=== PATIENT | female | born 1945 ===

== ENCOUNTER 2016-05-19 17:34 | Observation (INO) | payer OTHER ==
[2016-05-19 17:39] VITALS: BMI 28.3
--- NOTE | 2016-05-19 17:59 | ED PDOC ---
Arrival/HPI - General Chief Complaint: Chest Pain Time Seen by Provider: 05/19/16 17:36 Historian: Patient - History of Present Illness Narrative History of Present Illness (Text): 05/19/16 17:36 A 70 year old female, whose past medical history includes atrial fibrillation ( on Xarelto), CAD (on plavix), CHF, fibromyalgia, anxiety and leaky value, presents to the emergency department complaining of progressively worsening weakness for some time but worse two days ago. Patient notes 2 days ago she developed intermittent, achy chest pain located across the chest wall. She notes and increase in the frequency of shortness of breath. She mentions for the past week she has had a non productive cough. Patient denies any fever, or other complaints at this time. PMD: Dr. Ramos Time/Duration: Other (sometimes now but worsening over the past 2 days) Symptom Onset: Gradual Symptom Course: Worsening Quality: Aching Activities at Onset: Rest Context: Home Past Medical History - Provider Review Nursing Documentation Reviewed: Yes - Cardiac Hx Atrial Fibrillation: Yes Other/Comment: "leaky valve" - Musculoskeletal/Rheumatological Hx Osteoporosis: Yes - Psychiatric Hx Substance Use: No - Surgical History Hx Hysterectomy: Yes Family/Social History - Physician Review Nursing Documentation Reviewed: Yes Family/Social History: No Known Family HX Smoking Status: Unknown If Ever Smoked Hx Alcohol Use: No Hx Substance Use: No Allergies/Home Meds Allergies/Adverse Reactions: Allergies No Known Allergies Allergy (Verified 05/19/16 17:38) Home Medications: Home Meds Medication Instructions Recorded Confirmed Amiodarone [Cordarone] 200 mg PO DAILY 05/19/16 05/19/16 Aspirin [Rhea Aspirin] 81 mg PO DAILY 05/19/16 05/19/16 Clopidogrel [Plavix] 75 mg PO DAILY 05/19/16 05/19/16 Gabapentin [Neurontin] 800 mg PO TID 05/19/16 05/19/16 Metoprolol Tartrate [Lopressor] 50 mg PO BID 05/19/16 05/19/16 Pantoprazole [Protonix] 40 mg PO DAILY 05/19/16 05/19/16 Pentoxifylline [Pentoxifylline] 400 mg PO TID 05/19/16 05/19/16 Rivaroxaban [Xarelto] 20 mg PO DAILY 05/19/16 05/19/16 diltiaZEM CD [Cardizem CD] 180 mg PO DAILY 05/19/16 05/19/16 Review of Systems - Physician Review All systems were reviewed & negative as marked: Yes - Review of Systems Constitutional: Fatigue. absent: Fevers Respiratory: SOB, Cough. absent: Sputum Cardiovascular: Chest Pain Physical Exam Vital Signs Reviewed: Yes Pulse: Regular Respiratory Rate: Normal Appearance: Positive for: Non-Toxic Pain Distress: None Mental Status: Positive for: Alert and Oriented X 3 - Systems Exam Head: Present: Atraumatic, Normocephalic Pupils: Present: PERRL Extroacular Muscles: Present: EOMI Conjunctiva: Present: Normal Mouth: Present: Moist Mucous Membranes Neck: Present: Normal Range of Motion Respiratory/Chest: Present: Clear to Auscultation, Good Air Exchange. No: Respiratory Distress, Accessory Muscle Use Cardiovascular: Present: Regular Rate and Rhythm, Normal S1, S2. No: Murmurs Abdomen: Present: Normal Bowel Sounds. No: Tenderness, Distention, Peritoneal Signs Back: Present: Normal Inspection Upper Extremity: Present: Normal Inspection. No: Cyanosis, Edema Lower Extremity: Present: Edema (+1 edema bilaterally). No: CALF TENDERNESS Neurological: Present: GCS=15, CN II-XII Intact, Speech Normal Skin: Present: Warm, Dry, Normal Color. No: Rashes Psychiatric: Present: Alert, Oriented x 3, Normal Insight, Normal Concentration Medical Decision Making ED Course and Treatment: 05/19/16 17:36 Impression: A 70 year old female with worsening weakness, shortness of breath and chest pain. Differential Diagnosis included but are not limited to: ACS vs. CHF vs. Pneumonia Plan: -- EKG -- Chest X-ray -- Labs -- Urinalysis -- Aspirin -- Reassess and disposition Progress Notes: - Lab Interpretations Lab Results: 05/19/16 18:05 05/19/16 18:05 Lab Results 05/19/16 18:05: WBC 5.1, RBC 3.32 L, Hgb 9.2 L, Hct 28.1 L, MCV 84.6, MCH 27.7, MCHC 32.7, RDW 14.8 H, Plt Count 201, MPV 10.0, Gran % 57.7, Lymph % (Auto) 29.6 , Assumption % (Auto) 8.9 H, Eos % (Auto) 3.2, Baso % (Auto) 0.6, Gran # 2.92, Lymph # 1.5, Assumption # 0.5, Eos # 0.2, Baso # 0.03, PT 16.2 H, INR 1.50 H, APTT 28.6, Sodium 136, Potassium 4.5, Chloride 104, Carbon Dioxide 22, Anion Gap 15, BUN 26 H, Creatinine 1.2, Est GFR ( Amer) 53, Est GFR (Non-Af Amer) 44, Random Glucose 113 H, Calcium 8.5, Magnesium 2.0, Total Bilirubin 0.5, AST 242 H , ALT 299 H, Alkaline Phosphatase 192 H, Lactate Dehydrogenase 1528 H, Total Creatine Kinase 86, Troponin I 0.02, NT-Pro-B Natriuret Pep 2150 H, Total Protein 6.5, Albumin 3.5, Globulin 3.0, Albumin/Globulin Ratio 1.2 I have reviewed the lab results: Yes - RAD Interpretation Radiology Orders: 05/19/16 17:48 CHEST PORTABLE [RAD] Stat - Medication Orders Current Medication Orders: Discontinued Medications Aspirin (Ecotrin) 162 mg PO STAT STA Stop: 05/19/16 17:48 Last Admin: 05/19/16 18:25 Dose: 162 MG - Scribe Statement The provider has reviewed the documentation as recorded by the Gerson Hogan Provider Scribe Attestation: All medical record entries made by the Radhaibkike were at my direction and personally dictated by me. I have reviewed the chart and agree that the record accurately reflects my personal performance of the history, physical exam, medical decision making, and the department course for this patient. I have also personally directed, reviewed, and agree with the discharge instructions and disposition. Disposition/Present on Arrival - Present on Arrival Any Indicators Present on Arrival: No History of DVT/PE: No History of Uncontrolled Diabetes: No Urinary Catheter: No History of Decub. Ulcer: No History Surgical Site Infection Following: None - Disposition Have Diagnosis and Disposition been Completed?: Yes Diagnosis: Congestive heart failure, Chest pain Disposition Time: 18:45 Patient Plan: Observation, Telemetry Condition: FAIR Discharge Instructions (ExitCare): Heart Failure (ED), Chest Pain (ED)
[2016-05-19 18:14] LABS: ADD MANUAL DIFF? NO
[2016-05-19 18:18] LABS: BASO # 0.03 K/mm3 (0.0-2.0); BASO % 0.6 % (0.0-3.0); EOS # 0.2 (0.0-0.7); EOS % 3.2 % (1.5-5.0); GRAN # 2.92 (1.4-6.5); GRAN % 57.7 % (50.0-68.0); HEMATOCRIT 28.1 % (36.0-48.0); LYMPH # 1.5 (1.2-3.4); LYMPH % 29.6 % (22.0-35.0); MEAN CELL VOLUME 84.6 fL (80.0-105.0); MEAN CORPUSCULAR HEMOGLOBIN 27.7 pg (25.0-35.0); MEAN CORPUSCULAR HGB CONC 32.7 g/dl (31.0-37.0); MONO # 0.5 (0.1-0.6); MONO % 8.9 % (1.0-6.0); PLATELET COUNT 201 10^3/uL (120.0-450.0); RED CELL DISTRIBUTION WIDTH 14.8 % (11.5-14.5); WHITE BLOOD COUNT 5.1 10^3/ul (4.5-11.0)
[2016-05-19 18:32] LABS: ALB/GLOB RATIO 1.2 (1.1-1.8); BILIRUBIN,TOTAL 0.5 mg/dL (0.2-1.3); CALCIUM 8.5 mg/dL (8.4-10.5); POTASSIUM 4.5 mmol/L (3.6-5.0); TOTAL PROTEIN 6.5 g/dL (5.8-8.3)
[2016-05-19 18:35] LABS: INR 1.5 (0.93-1.08); PARTIAL THROMBOPLASTIN TIME 28.6 Seconds (23.7-30.8)
[2016-05-19 18:42] LABS: TROPONIN I 0.02 ng/mL
[2016-05-19 23:50] LABS: URINE BILIRUBIN NEGATIVE (NEGATIVE); URINE BLOOD NEGATIVE (NEGATIVE); URINE GLUCOSE (UA) NEGATIVE (NEGATIVE); URINE KETONE NEGATIVE (NEGATIVE); URINE LEUKOCYTE ESTERASE NEGATIVE Leu/uL (NEGATIVE); URINE PROTEIN TRACE mg/dL (<30 mg/dL); URINE UROBILINOGEN 0.2 E.U./dL (<1 E.U./dL)
[2016-05-19 23:51] LABS: URINE APPEARANCE CLEAR (CLEAR); URINE COLOR YELLOW (YELLOW)
[2016-05-19] MEDS ORDERED: Pantoprazole 40 mg EC Tab PO STA (23:51)
[2016-05-19 23:54] LABS: URINE EPITHELIAL CELLS 0 - 2 /hpf (0-5); URINE RBC 0 - 2 /hpf (0-2); URINE WBC 0 - 2 /hpf (0-6)
[2016-05-19 23:58] VITALS: O2SAT 98
[2016-05-20 04:17] LABS: ADD MANUAL DIFF? NO
[2016-05-20 04:20] LABS: BASO # 0.02 K/mm3 (0.0-2.0); BASO % 0.4 % (0.0-3.0); EOS # 0.2 (0.0-0.7); EOS % 3.2 % (1.5-5.0); GRAN # 2.64 (1.4-6.5); GRAN % 53.1 % (50.0-68.0); HEMATOCRIT 26.9 % (36.0-48.0); LYMPH # 1.6 (1.2-3.4); LYMPH % 31.5 % (22.0-35.0); MEAN CELL VOLUME 84.6 fL (80.0-105.0); MEAN CORPUSCULAR HEMOGLOBIN 27.7 pg (25.0-35.0); MEAN CORPUSCULAR HGB CONC 32.7 g/dl (31.0-37.0); MEAN PLATELET VOLUME 9.9 fl (7.0-11.0); MONO # 0.6 (0.1-0.6); MONO % 11.8 % (1.0-6.0); PLATELET COUNT 180 10^3/uL (120.0-450.0); RED CELL DISTRIBUTION WIDTH 14.6 % (11.5-14.5)
[2016-05-20 04:48] LABS: ALB/GLOB RATIO 1.1 (1.1-1.8); BILIRUBIN,TOTAL 0.5 mg/dL (0.2-1.3); CALCIUM 8.3 mg/dL (8.4-10.5); PHOSPHOROUS 4.4 mg/dL (2.5-4.5); POTASSIUM 4.3 mmol/L (3.6-5.0); TOTAL PROTEIN 5.9 g/dL (5.8-8.3)
[2016-05-20 05:02] LABS: FREE T4 1.57 ng/dL (0.78-2.19)
[2016-05-20 05:16] LABS: THYROID STIMULATING HORMONE 3.74 mIU/mL (0.46-4.68)
[2016-05-20] MEDS ORDERED: Pantoprazole 40 mg EC Tab PO SCH (06:30)
--- NOTE | 2016-05-20 06:31 | HP ---
HISTORY OF PRESENT ILLNESS: The patient is a 70-year-old female who came to Emergency Room complaining of increasing shortness of breath, feeling weak, tired, having some chest pressure. Has been going on for the last 2 to 3 days. It got worse today. She complained of chest discomfort acro ss the chest wall along with shortness of breath. Denies any fever or chills. She did have a produc tive cough almost a week or 2 ago, but did not have fever. No hemoptysis, no hematemesis. PAST MEDICAL HISTORY: Significant for: 1. Chronic AFib, on Xarelto. 2. Coronary artery disease. 3. History of congestive heart failure. 4. Anxiety disorder. 5. History of fibromyalgia. ALLERGIES: She is not allergic to any medications. MEDICATIONS AT HOME: She is on: 1. Pentoxifylline. 2. Neurontin 800 three times a day. 3. Xarelto 20 mg daily. 4. Plavix 75 mg daily. 5. Metoprolol 50 mg twice a day. 6. Diltiazem 180 daily. 7. Protonix 40 daily. 8. Aspirin 81 daily. 9. Amiodarone 200 daily. SOCIAL HISTORY: Denies smoking, drinking or alcohol use. REVIEW OF SYSTEMS: Significant for generalized weakness, shortness of breath, chest tightness off an d on, cough and congestion. PHYSICAL EXAMINATION: GENERAL: She is awake and alert, communicative. VITAL SIGNS: She is afebrile, pulse 52, respirations 20, blood pressure 120/63. LUNGS: Bilateral basal soft crackle. HEART: S1, S2 audible. ABDOMEN: Soft, nontender. No rebound, no guarding. NEUROLOGIC: The patient is awake and alert, communicative. LABORATORY DATA: WBC is 5.1, hemoglobin 9.2, hematocrit 28, platelet 201. PT 16.2, INR 1.50, PTT 28 .6. Chemistry: Sodium 136, potassium 4.5, chloride 104, CO2 of 22, BUN 26, creatinine 1.2, blood ramirez gar of 113. AST 242, ALT 299, alkaline phosphatase 192. LDH is 1528. BNP is 2150. X-ray chest shows venous congestion. ASSESSMENT: 1. Chest pain, rule out coronary artery disease. 2. Congestive heart failure. 3. History of chronic atrial fibrillation with acute and chronic atrial fibrillation. 4. Abnormal liver function tests, probably passive congestion, rule out cholelithiasis. 5. Abnormal liver function tests. 6. Mild renal insufficiency. 7. Chronic anemia. PLAN: The patient will be admitted on telemetry. Will start diuresis. Will resume her medication. Cardiology consult by Dr. Euceda. Echocardiogram will be ordered and I will also order for abdominal sonogram. Will reevaluate the patient in the a.m. Claire Henderson MD cc: [phone] TT: 05/20/2016 06:31:02 mn
--- NOTE | 2016-05-20 07:55 | RAD ---
HISTORY: chest pain, cough r/o pna COMPARISON: No prior. FINDINGS: LUNGS: The lungs are well inflated. There is bibasilar airspace disease. PLEURA: No significant pleural effusion identified, no pneumothorax apparent. CARDIOVASCULAR: Normal. OSSEOUS STRUCTURES: No significant abnormalities. VISUALIZED UPPER ABDOMEN: Normal. OTHER FINDINGS: None. IMPRESSION: Bibasilar airspace disease may represent subsegmental atelectasis however superimposed pneumonia cannot be excluded. Follow-up PA and lateral radiographs are recommended to ensure complete resolution.
[2016-05-20] MEDS ORDERED: diltiaZEM 180 mg/24 Hours CD Cap PO SCH (10:00)
--- NOTE | 2016-05-20 12:06 | CARD ---
APPROVED REPORT EKG Measurement Heart [id number] <Conclusion> Sinus bradycardia Otherwise normal ECG
--- NOTE | 2016-05-20 12:08 | CON ---
DATE: 05/20/2016 REASON FOR CONSULTATION: Shortness of breath, cardiac evaluation, history of atrial fibrillation, hi story of mitral regurgitation. BRIEF CLINICAL HISTORY: A 70-year-old Belarusian speaking female came to the Emergency Room. Recently came from [place]. Information obtained from the daughter, Rossi, telephone #[phone]. Expl ained the patient has atrial fibrillation, coronary artery disease and possible mitral regurgitation. Being followed by Dr. Garcia, and is scheduled for cardiac catheterization at [place] and open hea rt at [facility]. Yesterday, patient was at home. The patient's son-in-law called the daughter venkat gibbs she was feeling very weak, so brought to the Emergency Room. Denies any chest pain now, but yeste rday she had chest pain and shortness of breath as well. PAST MEDICAL HISTORY: As mentioned, significant for atrial fibrillation, coronary artery disease, mi tral regurgitation, congestive heart failure, and fibromyalgia. PAST SURGICAL HISTORY: Not obtainable. CURRENT MEDICATIONS: Pentoxifylline, Neurontin, Xarelto, Plavix, metoprolol, Cardizem, Protonix, asp irin, amiodarone. SOCIAL HISTORY: Denies smoking. Denies any history of alcohol abuse. REVIEW OF SYSTEMS: As per HPI. PHYSICAL EXAMINATION: VITAL SIGNS: Temperature afebrile, heart rate 52, blood pressure 125/68. HEENT: PERRLA. Extraocular muscles intact. NECK: Supple. No carotid bruit or thyromegaly. CHEST: Clear to auscultation. HEART: S1, S2 regular. ABDOMEN: Soft. EXTREMITIES: Clubbing and cyanosis negative. LABORATORY DATA: Blood workup as follows: WBC 5.0, hemoglobin 8.8, hematocrit 26.9, platelet count 180. Chemistry shows sodium 138, potassium 4.3, chloride 106, carbon dioxide 24, anion gap of 12, BU N 22, creatinine 1.2. Troponin 0.02. TSH 3.74. Triglyceride 90, cholesterol 160, LDL 66, HDL 34. BNP 2150. EKG shows possible sinus itzel. IMPRESSION: Paroxysmal atrial fibrillation, anemia, decompensated congestive heart failure, severe m itral regurgitation, coronary artery disease, congestive heart failure possibly secondary to hy pertension, coronary artery disease. RECOMMENDATION: The patient has already been scheduled for cardiac catheterization and possible MVR at [facility]. Discussed with the daughter, Rossi, telephone number [phone]. Agree to continue Xarelto, but patient is on heavy duty blood thinner. Also history of tinnitus for a long time. Con tinue IV Lasix. Discussed with the patient. Since all the records and everything is there and the p atient has already been scheduled, suggest to follow up with [facility] for open heart surgery. We will discuss with Dr. Henderson. Once the patient is stable, can be discharged and to fo llow up with them. No further cardiac workup is planned at this time, except patient has already bee n ordered an echo. We will follow and review the echo when it is done. Interim, continue amiodarone to maintain sinus. Continue IV Lasix. Continue Cardizem. Will follow with you. Thank you, Dr. Henderson, for providing the opportunity in taking care of the patient. Will Euceda MD cc: [phone] TT: 05/20/2016 12:07:59 Confirmation # [id number] Dictation # [id number] vanessa
--- NOTE | 2016-05-20 13:17 | CARD ---
APPROVED REPORT EXAM: Two-dimensional and M-mode echocardiogram with Doppler and color Doppler. INDICATION Chest Pain Congestive Heart Failure 2D DIMENSIONS Left Atrium (2D)4.8 (1.6-4.0cm)IVSd1.2 (0.7-1.1cm) LVDd5.5 (3.9-5.9cm)PWd1.1 (0.7-1.1cm) LVDs3.7 (2.5-4.0cm)FS (%) 33.4 % LVEF (%)61.5 (>50%) M-Mode DIMENSIONS Aortic Root2.40 (2.2-3.7cm)Aortic Cusp Exc.1.30 (1.5-2.0cm) Aortic Valve AoV Peak Vrgokboi562.0cm/Jarrell Peak GR.16mmHg Mitral Valve E/A ratio0.0 TDI E/Lateral E'0.0E/Medial E'0.0 Tricuspid Valve TR Peak [id number]/sRAP [id number] Peak Gr.58mmHg [id number] LEFT VENTRICLE The left ventricle is normal size. There is mild concentric left ventricular hypertrophy. The left ventricular function is normal.EF-55-60% There is normal LV segmental wall motion. Transmitral Doppler flow pattern is Grade III-reversible restrictive diastolic dysfunction. No left ventricle thrombus noted on this study. There is no ventricular septal defect visualized. There is no left ventricular aneurysm. RIGHT VENTRICLE The right ventricle is normal size. There is normal right ventricular wall thickness. The right ventricular systolic function is normal. ATRIA The left atrium is mildly dilated. The right atrium is mildly dilated. The interatrial septum is intact with no evidence for an atrial septal defect. AORTIC VALVE The aortic valve is calcified but opens well. The aortic valve is moderately sclerotic. There is trace aortic regurgitation. Aortic sclerosis Vs Mild MITRAL VALVE The mitral valve is thickened but opens well. Mitral regurgitation is severe. There is no mitral valve stenosis. There is no evidence of mitral valve prolapse. TRICUSPID VALVE The tricuspid valve leaflets are thickened , but open well. There is moderate to severe tricuspid regurgitation.[id number] There is moderate pulmonary hypertension. There is no tricuspid valve stenosis. There is no tricuspid valve prolapse or vegetation. PULMONIC VALVE The pulmonic valve is mildly thickened. There is trace pulmonic valvular regurgitation. There is no pulmonic valvular stenosis. GREAT VESSELS The aortic root is normal in size. The ascending aorta is normal in size. The pulmonary artery is normal. The IVC is normal in size and collapses >50% with inspiration. PERICARDIAL EFFUSION There is no pericardial effusion. <Conclusion> The left ventricle is normal size. There is mild concentric left ventricular hypertrophy. The left ventricular function is normal.EF-55-60% There is trace aortic regurgitation. Aortic sclerosis Vs Mild Mitral regurgitation is severe. There is moderate to severe tricuspid regurgitation.[id number] There is moderate pulmonary hypertension. There is no pericardial effusion. The IVC is normal in size and collapses >50% with inspiration. No vegetation or thrombus noted.
[2016-05-20 17:55] VITALS: BP 124/64; PULSE 53; RESP 19; TEMP 98.9
--- NOTE | 2016-05-21 10:27 | DS ---
The patient was not able to give much history yesterday, but today, I got more detailed history from her daughter. She stated the patient moved here almost a month ago, and she was having complaint of palpitation and shortness of breath. She has been going to different hospital, including ____ [facility]. The daughter knows somebody in [facility], and she made an appointment with mannequin refinisher mukesh Cavanaugh, and she is scheduled to have a valve repair done on . Initial plan was to have cardiac cath done. She has surgery scheduled already for . So they opted to transfer her t o [facility] to have her procedure done - both cardiac cath and possible valve repair. PHYSICAL EXAMINATION: GENERAL: Today, she is awake and alert. She is communicative. She is not complaining of shortness of breath or palpitations at this point. VITAL SIGNS: She is afebrile, pulse 53, respirations 19, blood pressure 124/64. LUNGS: Bilateral fair airflow. No rhonchi or crackle. HEART: S1, S2 audible with a systolic murmur. ABDOMEN: Soft, nontender. No rebound, no guarding. NEUROLOGIC: She is awake and alert, communicative. LABORATORY EXAM: WBC is 5.0, hemoglobin 8.8, hematocrit 26.9, platelets 180. Chemistry: Sodium 138 , potassium 4.3, chloride 106, CO2 of 24, BUN 22, creatinine 1.2, blood sugar of 95. Her AST 179, AL T 242. Alk phos is 165. BNP on admission was 2150. Two sets of troponins are negative. She had echocardiogram done that showed concentric LVH. Left ventricular ejection fraction is 55-60% , trace aortic regurg, and she has aortic sclerosis and severe mitral regurg, moderate to severe tric uspid regurg, moderate pulmonary hypertension. ASSESSMENT: 1. Exertional dyspnea, probably secondary to severe mitral regurgitation. 2. Chronic atrial fibrillation. 3. Hypertension. 4. Chronic anemia. 5. Passive hepatic congestion with ____. Conclusion was to transfer the patient to [facility], and that was done, where she will have mitral valve repair done and possible cardiac catheterization done . She will follow up with her primary medical doctor, Dr. Ramos. Claire Henderson MD cc: [phone] TT: 05/21/2016 10:26:57 jn
== END 2016-05-20 21:13 | disposition short-term general hospital (02) ==
LOC: ED 17:34 → ERH 18:40 → 2RNO 22:54
PROVIDERS: ADMIT Internal Medicine; ATTEND Internal Medicine
DX: I34.0 Nonrheumatic mitral (valve) insufficiency (principal); I11.0 Hypertensive heart disease with heart failure; I50.9 Heart failure, unspecified; I48.2 Chronic atrial fibrillation; I27.2 Other secondary pulmonary hypertension; D64.9 Anemia, unspecified; K76.1 Chronic passive congestion of liver; I25.10 Atherosclerotic heart disease of native coronary artery without angina pectoris; F41.9 Anxiety disorder, unspecified; M79.7 Fibromyalgia; N28.9 Disorder of kidney and ureter, unspecified; Z79.82 Long term (current) use of aspirin; R06.09 Other forms of dyspnea; Z79.01 Long term (current) use of anticoagulants
CPT/HCPCS: 36415; 71010; 80053; 80061; 81001; 82550; 83036; 83615; 83735; 83880; 84100; 84439; 84443; 84484; 85025; 85610; 85730; 87086; 93005; 93306; 97116; 97162; 99284; G0378; G8978; G8979; J1940; J2405

== ENCOUNTER 2018-04-02 09:44 | Inpatient (IN) | payer OTHER ==
[2018-04-02 09:46] VITALS: BMI 27.8
--- NOTE | 2018-04-02 10:02 | ED PDOC ---
Arrival/HPI - General Time Seen by Provider: 04/02/18 09:46 Historian: Patient - History of Present Illness Narrative History of Present Illness (Text): 04/02/18 09:59 a 72 year old female, whose past medical history includes atrial fibrillation, CAD, CHF, fibromyalgia, anxiety, mitral and tricuspid valve replacement, presents to the emergency department with a complaint of headache, right earache, cough, chest pain, and shortness of breath. The patient states that she is visiting from [place] for the past month. She reports chills but denies fevers, dizziness , dyspnea on exertion, sputum, abdominal pain, nausea, vomiting, diarrhea, back pain, neck pain, urinary/bowel changes, or any other complaint. Time/Duration: Other (Yesterday) Symptom Onset: Sudden Symptom Course: Unchanged Activities at Onset: Rest, Light Context: Home Past Medical History - Provider Review Nursing Documentation Reviewed: Yes - Cardiac Hx Congestive Heart Failure: Yes Hx Hypertension: Yes - Pulmonary Hx Respiratory Disorders: No - Neurological Hx Neurological Disorder: No - HEENT Hx HEENT Disorder: No - Renal Hx Renal Disorder: No - Endocrine/Metabolic Hx Endocrine Disorders: No - Integumentary Hx Dermatological Disorder: No - Musculoskeletal/Rheumatological Hx Falls: Yes - Gastrointestinal Hx Gastrointestinal Disorders: Yes Hx Gastroesophageal Reflux: Yes - Genitourinary/Gynecological Hx Genitourinary Disorders: No - Psychiatric Hx Anxiety: Yes Hx Substance Use: No - Surgical History Hx Hysterectomy: Yes Family/Social History - Physician Review Nursing Documentation Reviewed: Yes Family/Social History: No Known Family HX Smoking Status: Never Smoked Hx Alcohol Use: No Hx Substance Use: No Allergies/Home Meds Allergies/Adverse Reactions: Allergies No Known Allergies Allergy (Verified 04/02/18 10:00) Home Medications: Home Meds Medication Instructions Recorded Confirmed Aspirin [[place] Aspirin] 81 mg PO DAILY 05/19/16 04/02/18 Gabapentin [Neurontin] 800 mg PO TID 05/19/16 04/02/18 Metoprolol Tartrate [Lopressor] 50 mg PO BID 05/19/16 04/02/18 Atorvastatin [Lipitor] 20 mg PO DAILY 04/02/18 04/02/18 Furosemide [Lasix] 20 mg PO DAILY 04/02/18 04/02/18 Orphenadrine [Norflex] 100 mg PO DAILY 04/02/18 04/02/18 Review of Systems - Physician Review All systems were reviewed & negative as marked: Yes - Review of Systems Constitutional: absent: Fevers ENT: Other (Right earache) Respiratory: SOB, Cough. absent: Sputum Cardiovascular: Chest Pain. absent: MUNROE Gastrointestinal: absent: Abdominal Pain, Stool Changes, Diarrhea, Nausea, Vomiting Genitourinary Female: absent: Urine Output Changes Neurological: absent: Headache, Dizziness Physical Exam Vital Signs Reviewed: Yes Vital Signs Temp Pulse Resp BP Pulse Ox 04/02/18 09:45 98.1 F 83 18 123/51 L 98 Temperature: Afebrile Blood Pressure: Hypotensive Pulse: Regular Respiratory Rate: Normal Appearance: Positive for: Well-Appearing, Non-Toxic, Comfortable Pain Distress: None Mental Status: Positive for: Alert and Oriented X 3 - Systems Exam Head: Present: Atraumatic, Normocephalic Pupils: Present: PERRL Extroacular Muscles: Present: EOMI Conjunctiva: Present: Normal Mouth: Present: Moist Mucous Membranes Neck: Present: Normal Range of Motion Respiratory/Chest: Present: Good Air Exchange, Decreased Breath Sounds. No: Respiratory Distress, Accessory Muscle Use Cardiovascular: Present: Regular Rate and Rhythm, Normal S1, S2. No: Murmurs Abdomen: No: Tenderness, Distention, Peritoneal Signs Back: Present: Normal Inspection Upper Extremity: Present: Normal Inspection. No: Cyanosis, Edema Lower Extremity: Present: Normal Inspection. No: Edema Neurological: Present: GCS=15, CN II-XII Intact, Speech Normal Skin: Present: Warm, Dry, Normal Color. No: Rashes Psychiatric: Present: Alert, Oriented x 3, Normal Insight, Normal Concentration Medical Decision Making ED Course and Treatment: 04/02/18 10:03 Impression: A 72 year old female presents to the emergency department with a complaint of headache, right earache, cough, chest pain, and shortness of breath. Plan: -- EKG -- Chest X-ray -- Blood Culture -- Labs -- Reassess and disposition Progress Notes: Chest X-ray Dictator : Jesse Gomez MD Report Date : 04/02/2018 10:35:05 IMPRESSION: No active disease. 04/02/18 11:04: Discussed case with Dr. Prescott who accepts patient to her service for Tele admission. Requested Dr. Avila and Dr. Harris for admission. 04/02/18 11:32 EKG shows normal sinus rhythm rate approximately [address] or T-wave changes. - Lab Interpretations I have reviewed the lab results: Yes - EKG Interpretation Interpreted by ED Physician: Yes Type: 12 lead EKG - Scribe Statement The provider has reviewed the documentation as recorded by the Scribe Luz Ortiz Provider Scribe Attestation: All medical record entries made by the Scribe were at my direction and per sonally dictated by me. I have reviewed the chart and agree that the record accurately reflects my personal performance of the history, physical exam, medical decision making, and the department course for this patient. I have also personally directed, reviewed, and agree with the discharge instructions and disposition. Disposition/Present on Arrival - Present on Arrival Any Indicators Present on Arrival: No History of DVT/PE: No History of Uncontrolled Diabetes: No Urinary Catheter: No History of Decub. Ulcer: No History Surgical Site Infection Following: None - Disposition Have Diagnosis and Disposition been Completed?: Yes Diagnosis: Congestive heart failure, Influenza Disposition: HOSPITALIZED Disposition Time: 11:13 Patient Plan: Observation, Telemetry Patient Problems: Current Active Problems Problem Status Onset Congestive heart failure Acute Influenza Acute Condition: FAIR
[2018-04-02 10:32] LABS: BASO # 0.02 K/mm3 (0.0-2.0); BASO % 0.3 % (0.0-3.0); EOS % 0.2 % (1.5-5.0); HEMOGLOBIN 10.4 g/dL (12.0-16.0); LYMPH # 0.6 (1.2-3.4); MEAN CELL VOLUME 83.5 fl (80.0-105.0); MEAN CORPUSCULAR HEMOGLOBIN 26.9 pg (25.0-35.0); MEAN CORPUSCULAR HGB CONC 32.2 g/dl (31.0-37.0); MEAN PLATELET VOLUME 9.6 fl (7.0-11.0); MONO # 0.5 (0.1-0.6); MONO % 8.4 % (1.0-6.0); RBC 3.87 10^6/uL (3.5-6.1); RED CELL DISTRIBUTION WIDTH 14.5 % (11.5-14.5); WHITE BLOOD COUNT 6.3 10^3/uL (4.5-11.0)
--- NOTE | 2018-04-02 10:38 | RAD ---
Date of service: 04/02/2018 HISTORY: cp COMPARISON: 05/19/2016 FINDINGS: LUNGS: No active pulmonary disease. PLEURA: No significant pleural effusion identified, no pneumothorax apparent. CARDIOVASCULAR: Aortic calcification Normal cardiac size. No pulmonary vascular congestion. OSSEOUS STRUCTURES: Sternal wires VISUALIZED UPPER ABDOMEN: Normal. OTHER FINDINGS: None. IMPRESSION: No active disease.
[2018-04-02 10:43] LABS: ALB/GLOB RATIO 1.4 (1.1-1.8); ALBUMIN 4.3 g/dL (3.0-4.8); CALCIUM 9.1 mg/dL (8.4-10.5); INR 1.2; PARTIAL THROMBOPLASTIN TIME 28.6 Seconds (26.9-38.3); PROTHROMBIN TIME 13.6 SECONDS (9.4-12.5)
[2018-04-02 10:54] LABS: TROPONIN I 0.03 ng/mL
[2018-04-02 10:58] LABS: CK-MB 0.7 ng/mL (0.0-3.6)
[2018-04-02 11:09] LABS: INFLUENZA A B POS FOR INFLUENZA A (NEGATIVE)
[2018-04-02] MEDS ORDERED: Pantoprazole 20 mg EC Tab PO ONE (14:21)
[2018-04-02] MEDS: Enoxaparin 40 mg Syringe SC SCH (14:56)
[2018-04-02] MEDS: Naproxen 550 mg Tab PO SCH (17:59)
--- NOTE | 2018-04-02 18:23 | CON ---
DATE: 04/02/2018 PULMONARY CONSULT REFERRING PHYSICIAN: Tammie Prescott MD REASON FOR CONSULT: Cough, short of breath, influenza positive. HISTORY OF PRESENT ILLNESS: This is 72 years old female with known history of atrial fibrillation, coronary artery disease, history of heart failure, fibromyalgia, history of valvular heart disease, and valve replacement in the remote past. Recently traveled to [place], came back about 6 weeks or so, been doing okay. In [place], she was seen by physician and was given inhaled bronchodilator with some shortness of breath. According to her, she has been getting short of breath for a while now, but from the last 3 days has been having rhinitis, cough, body aches, pain, comes to ER, had a influenza test done according to ER which was positive. She was given Tamiflu. Presently complaining of aches and pains, cough. No nausea. No vomiting. No abdominal pain. No dysuria, leg pain or leg swelling. PAST MEDICAL HISTORY: As per history of present illness. FAMILY HISTORY: No significant cardiopulmonary disease reported. SOCIAL HISTORY: No history of smoking or alcohol use. ALLERGIES: NONE KNOWN. MEDICATIONS: As outpatient, she is on aspirin, gabapentin, metoprolol tartrate, Lipitor, Lasix, and Norflex. She was given Tamiflu in the ER. REVIEW OF SYSTEMS: Had headache, rhinitis, cough, shortness of breath. No chest pain. No nausea, no vomiting, no diarrhea. Has body aches and pains. PHYSICAL EXAMINATION GENERAL: Lying in the bed. VITAL SIGNS: Temperature is 99, heart rate 75, respiratory rate is 18, blood pressure 113/80, pulse ox 97% on room air. HEENT: Moist mucous membranes. Crowded airway. NECK: Supple. No JVD. LUNGS: Has scattered rhonchi. HEART: S1 and S2. ABDOMEN: Soft, nontender. No organomegaly. EXTREMITIES: No edema. NEUROLOGIC: Awake, alert; follows simple commands. LABORATORY DATA: Shows hemoglobin 10.4, hematocrit 33.3, WBC is 6.3, platelet is 168. INR 1.20. PTT 29. D-dimer is 287. Sodium 132, potassium 3.8, chloride 98, bicarbonate 23, BUN 21, creatinine 1.1, calcium is 9.1, magnesium 1.6, AST 30, ALT 12, alk phos is 66. Troponin 0.03, proBNP 5330, albumin is 4.3. Influenza A is positive. Group A beta strep is negative. Chest x-ray done shows no active pulmonary disease. IMPRESSION AND PLAN: Influenza A infection, probably triggering bronchitis and also probably triggering heart failure, history of fibromyalgia, history of valvular heart disease, diagnosis of atrial fibrillation. Pulmonary point of view, we will add inhaled bronchodilator, gastric prophylaxis, deep venous thrombosis prophylaxis, Tamiflu 75 mg daily. We will get venous Doppler of lower extremity. Recently traveled about 4-6 weeks ago. Also, we will get echocardiogram and assess right ventricular and left ventricular function. Has history of valvular heart disease with coronary artery disease and atrial fibrillation. Present EKG shows sinus rhythm. She is not on any anticoagulation. We will give DVT prophylaxis for now. We will also add Naprosyn for antiinflammatory. Continue her gabapentin for fibromyalgia. We will do followup labs in the morning. She may need outpatient sleep study because of her cardiomyopathy and AFib and crowded airway. Thank you and we will follow with you. Will Harris MD
--- NOTE | 2018-04-02 23:08 | CARD ---
APPROVED REPORT Date of service: 04/02/2018 EKG Measurement Heart [id number] <Conclusion> Normal sinus rhythm Normal ECG
[2018-04-02] MEDS: Budesonide 0.25 mg/2 ml Inhal Susp UD IH SCH (23:52)
[2018-04-02] MEDS: Arformoterol 15 mcg/2 ml Inh Sol IH SCH (23:52)
[2018-04-03 03:02] LABS: PH,URINE 5.5 (4.7-8.0); URINE BILIRUBIN NEGATIVE (NEGATIVE); URINE BLOOD NEGATIVE (NEGATIVE); URINE GLUCOSE (UA) NEGATIVE (NEGATIVE); URINE LEUKOCYTE ESTERASE SMALL Leu/uL (NEGATIVE); URINE PROTEIN NEGATIVE mg/dL (<30 mg/dL); URINE UROBILINOGEN 0.2 E.U./dL (<1 E.U./dL)
[2018-04-03 03:06] LABS: URINE APPEARANCE CLEAR (CLEAR); URINE COLOR YELLOW (YELLOW)
[2018-04-03 03:42] LABS: URINE BACTERIA SMALL /hpf
--- NOTE | 2018-04-03 03:58 | HP ---
DATE OF EXAM: 04/03/2018 HISTORY OF PRESENT ILLNESS: The patient is a 72-year-old female with past medical history of coronary artery disease, congestive heart failure, fibromyalgia, anxiety, mitral and tricuspid valve replacement, came to emergency department with complaining of headache, right earache, cough, chest pain, shortness of breath. The patient states that she is visiting from [place] for the past month. She reports chills, but denies fevers, dizziness, dyspnea on exertion, sputum, abdominal pain. No nausea, vomiting, or diarrhea. No urinary symptoms. PAST MEDICAL HISTORY: Congestive heart failure, hypertension, disease, and anxiety. FAMILY HISTORY: Father and mother, noncontributory. HABITS: No smoking. No drugs. No ethanol. ALLERGIES: THE PATIENT IS NOT ALLERGIC WITH ANY MEDICATIONS. HOME MEDICATIONS: Aspirin, Neurontin, Lopressor, Lipitor, Lasix, Norflex. REVIEW OF SYSTEMS: The patient was seen and examined at bedside in the ER looking comfortable. At that moment, no fever, no chills, no hematochezia. Complaining of shortness of breath, coughing, chest pain. No headache or dizziness. No urinary output changes. No abdominal pain, stool changes, diarrhea, nausea, or vomiting. PHYSICAL EXAMINATION: VITAL SIGNS: Temperature 98.1, pulse 86, respiratory rate 18, blood pressure 123/51, and pulse oximetry 98. HEENT: Head is normocephalic and atraumatic. Eyes; PERRLA. Extraocular muscles are intact. Conjunctivae clear. Nose patent. NECK: Supple. No carotid bruit. No JVD or thyromegaly. CHEST: Bilaterally symmetrical. HEART: S1 and S2 positive. LUNGS: Clear to auscultation. ABDOMEN: Soft. Bowel sounds present. No organomegaly. EXTREMITIES: No edema. No cyanosis. NEUROLOGIC: Awake and alert, follows simple commands. LABORATORY DATA: White blood cells 6.3, hemoglobin 10.4, hematocrit 32.3, platelets 158. Sodium 132, potassium 3.8, BUN 21, creatinine 1.1, glucose 129 and magnesium 1.6. ASSESSMENT AND PLAN: Ms. Herrera Martinez is a 72-year-old lady with hyperglycemia last night with hypomagnesemia, anemia, influenza positive for type A. Lower extremity ultrasound is pending. Has history of atrial fibrillation, coronary artery disease, congestive heart failure, history of fibromyalgia, valvular heart disease, valve replacement, particularly she was seen by the physician and was continued on inhaled bronchodilator with some shortness of breath, has influenza, multiple bronchitis, congestive heart failure, history of fibromyalgia, history of valvular heart disease. started on Tamiflu. Appreciated Dr. Harris's and Dr. Avila's input. Repeat labs. We will followup. Tammie Prescott MD MTDJuan Manuel
[2018-04-03] MEDS: Arformoterol 15 mcg/2 ml Inh Sol IH SCH ×2 (07:52→20:12)
[2018-04-03] MEDS: Budesonide 0.25 mg/2 ml Inhal Susp UD IH SCH ×2 (07:52→20:12)
[2018-04-03 08:14] LABS: HEMOGLOBIN 11.5 g/dL (12.0-16.0); MEAN CELL VOLUME 84.5 fl (80.0-105.0); MEAN CORPUSCULAR HEMOGLOBIN 26.7 pg (25.0-35.0); MEAN CORPUSCULAR HGB CONC 31.6 g/dl (31.0-37.0); MEAN PLATELET VOLUME 9.4 fl (7.0-11.0); RBC 4.31 10^6/uL (3.5-6.1); RED CELL DISTRIBUTION WIDTH 14.7 % (11.5-14.5)
[2018-04-03 08:32] LABS: IRON 20 ug/dL (45-180)
--- NOTE | 2018-04-03 08:35 | CP.PCM.CON ---
History of Present Illness - History of Present Illness History of Present Illness: Awake, ambulating to bathroom, no distress, Reason for consultation: Cardiac evaluation of chest pain and shortness of breath Brief history of present illness: A 72 year old female who came in to the ER due to headache, coughing, chest discomfort when coughing, body malaise, shortness of breath. History of coronary artery disease ,atrial fibrillation, CHF, fibromyalgia, tinnitus, anxiety, mitral and tricuspid valve replacement in [facility] 2017. Seen and examined by me and Dr. Avila Review of Systems - Review of Systems All systems: reviewed and no additional remarkable complaints except Review of Systems: as per HPI Past Patient History - Past Social History Smoking Status: Never Smoked - CARDIAC Hx Congestive Heart Failure: Yes - PULMONARY Hx Respiratory Disorders: No - NEUROLOGICAL Hx Neurological Disorder: No - HEENT Hx HEENT Problems: No - RENAL Hx Chronic Kidney Disease: No - ENDOCRINE/METABOLIC Hx Endocrine Disorders: No - INTEGUMENTARY Hx Dermatological Problems: No - MUSCULOSKELETAL/RHEUMATOLOGICAL Hx Falls: No - GASTROINTESTINAL Hx Gastrointestinal Disorders: Yes Hx Gastroesophageal Reflux: Yes - GENITOURINARY/GYNECOLOGICAL Hx Genitourinary Disorders: No - PSYCHIATRIC Hx Anxiety: Yes Hx Substance Use: No - SURGICAL HISTORY Hx Hysterectomy: Yes - ANESTHESIA Hx Anesthesia: Yes Hx Anesthesia Reactions: No Hx Malignant Hyperthermia: No Meds Allergies/Adverse Reactions: Allergies Allergy/AdvReac Type Severity Reaction Status Date / Time No Known Allergies Allergy Verified 04/02/18 10:00 - Medications Medications: Current Medications Acetaminophen (Tylenol 325mg Tab) 650 mg PO Q6H PRN PRN Reason: Fever >100.4 F Last Admin: 04/02/18 18:27 Dose: 650 mg Arformoterol Tartrate (Brovana) 15 mcg IH [id number] [facility] Last Admin: 04/03/18 07:52 Dose: 15 mcg Aspirin (Aspirin Chewable) 81 mg PO DAILY [facility] Atorvastatin Calcium (Lipitor) 20 mg PO DAILY [facility] Benzonatate (Tessalon Perles) 200 mg PO Q8H [facility] Budesonide (Pulmicort Respules) 0.25 mg IH [id number] [facility] Last Admin: 04/03/18 07:52 Dose: 0.25 mg Enoxaparin Sodium (Lovenox) 40 mg SC DAILY [facility]; Protocol Last Admin: 04/02/18 14:56 Dose: 40 mg Furosemide (Lasix) 20 mg PO DAILY [facility] Gabapentin (Neurontin) 800 mg PO TID [facility] Last Admin: 04/02/18 17:58 Dose: 800 mg Metoprolol Tartrate (Lopressor) 50 mg PO BID [facility] Last Admin: 04/02/18 18:01 Dose: 50 mg Naproxen (Anaprox Ds) 550 mg PO BID [facility] Last Admin: 04/02/18 17:59 Dose: 550 mg Ondansetron HCl (Zofran Inj) 4 mg IVP Q6H PRN PRN Reason: Nausea/Vomiting Last Admin: 04/02/18 18:27 Dose: 4 mg Oseltamivir Phosphate (Tamiflu Cap) 75 mg PO BID [facility]; Protocol Stop: 04/07/18 14:20 Last Admin: 04/02/18 17:59 Dose: 75 mg Physical Exam - Constitutional Appears: Non-toxic, No Acute Distress - Head Exam Head Exam: NORMAL INSPECTION, NORMOCEPHALIC - Eye Exam Eye Exam: Normal appearance Pupil Exam: NORMAL ACCOMODATION - ENT Exam ENT Exam: Mucous Membranes Moist, Normal Exam - Respiratory Exam Respiratory Exam: Decreased Breath Sounds, NORMAL BREATHING PATTERN - Cardiovascular Exam Cardiovascular Exam: Bradycardia, +S1, +S2 Additional comments: Telemetry SB 50's - GI/Abdominal Exam GI & Abdominal Exam: Normal Bowel Sounds, Soft - Extremities Exam Extremities exam: Positive for: full ROM, normal capillary refill - Neurological Exam Neurological exam: Alert, Oriented x3 - Psychiatric Exam Psychiatric exam: Normal Affect, Normal Mood - Skin Skin Exam: Dry, Normal Color, Warm Results - Vital Signs Recent Vital Signs: Last Vital Signs Temp 98.2 F 04/03/18 06:00 Pulse 54 L 04/03/18 06:00 Resp 18 04/03/18 06:00 BP 125/69 04/03/18 06:00 Pulse Ox 98 04/03/18 06:00 - Labs Result Diagrams: 04/03/18 07:36 04/03/18 07:36 Labs: Laboratory Results - last 24 hr 04/02/18 04/02/18 04/02/18 10:07 10:18 10:18 WBC 6.3 RBC 3.87 Hgb 10.4 L Hct 32.3 L MCV 83.5 MCH 26.9 MCHC 32.2 RDW 14.5 Plt Count 168 MPV 9.6 Neut % (Auto) 82.1 H Lymph % (Auto) 9.0 L Sebastian % (Auto) 8.4 H Eos % (Auto) 0.2 L Baso % (Auto) 0.3 Lymph # (Auto) 0.6 L Sebastian # (Auto) 0.5 Eos # (Auto) 0.0 Baso # (Auto) 0.02 Absolute Neuts (auto) 5.18 PT INR APTT D-Dimer, Quantitative Sodium 132 Potassium 3.8 Chloride 98 Carbon Dioxide 23 Anion Gap 14 BUN 21 Creatinine 1.1 Est GFR ( Amer) 59 Est GFR (Non-Af Amer) 49 Random Glucose 129 H Calcium 9.1 Magnesium 1.6 L Total Bilirubin 0.5 AST 30 ALT 12 Alkaline Phosphatase 66 Lactate Dehydrogenase 500 Total Creatine Kinase 252 H CK-MB (CK-2) 0.7 CK-MB (CK-2) % Cancelled Troponin I 0.03 D NT-Pro-B Natriuret Pep 5330 H Total Protein 7.5 Albumin 4.3 Globulin 3.2 Albumin/Globulin Ratio 1.4 Urine Color Urine Appearance Urine pH Ur Specific Sidon Urine Protein Urine Glucose (UA) Urine Ketones Urine Blood Urine Nitrate Urine Bilirubin Urine Urobilinogen Ur Leukocyte Esterase Urine RBC Urine WBC Ur Epithelial Cells Urine Bacteria Influenza Typ A,B (EIA) Pos for influenza a H Grp A Beta Strep Ag Negative 04/02/18 04/03/18 10:18 02:30 WBC RBC Hgb Hct MCV MCH MCHC RDW Plt Count MPV Neut % (Auto) Lymph % (Auto) Sebastian % (Auto) Eos % (Auto) Baso % (Auto) Lymph # (Auto) Sebastian # (Auto) Eos # (Auto) Baso # (Auto) Absolute Neuts (auto) PT 13.6 H INR 1.20 APTT 28.6 D-Dimer, Quantitative 287 H Sodium Potassium Chloride Carbon Dioxide Anion Gap BUN Creatinine Est GFR ( Amer) Est GFR (Non-Af Amer) Random Glucose Calcium Magnesium Total Bilirubin AST ALT Alkaline Phosphatase Lactate Dehydrogenase Total Creatine Kinase CK-MB (CK-2) CK-MB (CK-2) % Troponin I NT-Pro-B Natriuret Pep Total Protein Albumin Globulin Albumin/Globulin Ratio Urine Color Yellow Urine Appearance Clear Urine pH 5.5 Ur Specific Sidon 1.025 Urine Protein Negative Urine Glucose (UA) Negative Urine Ketones Negative Urine Blood Negative Urine Nitrate Negative Urine Bilirubin Negative Urine Urobilinogen 0.2 Ur Leukocyte Esterase Small H Urine RBC 2 - 5 H Urine WBC 5 - 10 H Ur Epithelial Cells 3 - 4 Urine Bacteria Small Influenza Typ A,B (EIA) Grp A Beta Strep Ag Assessment & Plan - Assessment and Plan (Free Text) Assessment: A 72 year old female who came in to the ER due to headache, coughing, chest discomfort when coughing, body malaise, shortness of breath. History of coronary artery disease ,atrial fibrillation, CHF, fibromyalgia, tinnitus, anxiety, mitral and tricuspid valve replacement in [facility] 2017. She was admitted at [facility] 04/2016 for congestive heart failure. Echo was done at that time with severe mitral and tricuspid regurgitation. Cardiac cath was not done as she was already scheduled at [facility] and open heart surgery at [facility]. She was being followed up by Dr. Garcia at [facility].This admission, Chest X ray showed normal/unremarkable results, EKG showed NSR. Troponin normal x 2. Rule out acute coronary syndrome Will order echo to evaluate valve function. Positive for influenza. On Tamiflu. Previous cardiac work up at [facility]: 05/20/16- Echo done prior to mitral and tricuspid Valve replacements: LVEF 55-60%, Trace aortic regurgitation, severe MR, Severe TR Moderate pulmonary hypertension Plan: Echo to evaluate LV function Denies chest pain and shortness of breath, Feels much better Continue Tamiflu for influenza A PRN Tessalon perles for coughing Blood pressure and heart rate controlled On ASA 81 mg daily, Lipitor 20 mg daily, Lovenox 40 mg daily,Lasix 20 mg daily, Lopressor 50 mg BID Tamiflu 75 mg BID Continue current medications Continue current treatment Will follow up Further recommendations during hospital course Plan and treatment discussed with Dr. Avila Thank you Dr. Prescott for the opportunity of taking care of Ms. Herrera Land - Date & Time Date: 04/03/18 Time: 06:35
[2018-04-03 08:41] LABS: % IRON SATURATION 7 % (20-55); TOTAL IRON BINDING CAPACITY 287 ug/dL (265-497)
[2018-04-03 08:47] LABS: ALB/GLOB RATIO 1.2 (1.1-1.8); ALBUMIN 4.3 g/dL (3.0-4.8)
[2018-04-03 09:14] LABS: WHITE BLOOD COUNT 3.3 10^3/uL (4.5-11.0)
--- NOTE | 2018-04-03 09:15 | PN ---
DATE: 04/03/2018 PULMONARY PROGRESS NOTE REFERRING PHYSICIAN: Tammie Prescott MD SUBJECTIVE: The patient is sitting at bedside. No acute distress. The patient reports waking up this morning, feeling well, but has episodes of coughing productive cough this morning and states that she feels better than yesterday. The patient continues on Droplet precautions for Influenza A. No headache, rhinitis, chest pain, abdominal pain, nausea, vomiting, diarrhea, leg pain, or leg swelling reported. OBJECTIVE: GENERAL: No acute distress. VITAL SIGNS: Blood pressure 125/69, pulse 54, temperature 98.2 and oxygen saturation 98% on room air. HEENT: Moist mucous membranes. Crowded airway. NECK: Supple. No JVD. LUNGS: Scattered rhonchi bilaterally. CARDIOVASCULAR: S1 and S2 audible. ABDOMEN: Soft and nontender. No distention. No organomegaly. EXTREMITIES: No bilateral lower extremity edema. NEUROLOGIC: Awake, alert, and verbal. Follows commands. MEDICATIONS: Reviewed. Tylenol 650 mg every 6 hours p.r.n. fever greater than 100.4, Brovana 15 mcg every 21 hours inhalation, aspirin 81 mg daily, Lipitor 20 mg daily, Pulmicort 0.25 mg inhalation every 12 hours, Lovenox 40 mg subcutaneously daily, Lasix 20 mg daily, Neurontin 800 mg 3 times a day, Lopressor twice a day, naproxen 550 mg twice a day, Zofran 4 mg every 6 hours p.r.n., Tamiflu 75 mg twice a day. LABORATORY DATA: Reviewed. Urinalysis shows urine leukocyte esterase small urine RBCs 2 to 5, urine WBC 5 to 10. Extremity ultrasound report pending. IMPRESSION AND PLAN: Influenza A infection, bronchitis, history of fibromyalgia, history of valvular heart disease, atrial fibrillation history, continue Droplet precaution, inhaled bronchodilator, deep venous thrombosis prophylaxis, gastric prophylaxis, venous Doppler of lower extremity report pending report. Will followup. Echocardiogram ordered and pending to be done to assess right ventricular and left ventricular function. We will order Tessalon Perles 200 mg every 8 hours for cough. The patient will need sleep study to rule out sleep apnea as a cause of cardiomyopathy and atrial fibrillation as outpatient. This patient is seen and examined with Dr. Harris. Discussed assessment and plan as described above. This patient is seen and examined with Jarad Escudero, nurse practitioner. Discussed assessment and plan as described above. Thank you for this consult. We will follow with you. Jarad Escudero APN Will Harris MD MTDJuan Manuel
[2018-04-03] MEDS: Furosemide 40 mg/5 mL Oral Soln UD PO SCH (09:23)
[2018-04-03] MEDS: Enoxaparin 40 mg Syringe SC SCH (09:24)
[2018-04-03] MEDS: Naproxen 550 mg Tab PO SCH ×2 (09:24→18:28)
[2018-04-03 12:58] LABS: FOLATE > 20.0 ng/mL
[2018-04-03] MEDS ORDERED: DiphenhydrAMINE 50 mg/ml Inj IVP STA (20:15)
--- NOTE | 2018-04-03 21:36 | PN ---
DATE: 04/03/2018 SUBJECTIVE: Patient is 72-year-old female. The patient was seen and examined at bedside on 04/03/2018, looking comfortable, coughing, but shortness of breath is better, feeling better. No hematuria. No hematochezia. No headache. No dizziness. No chest pain. No palpitations. The patient is on drplet precautions for influenza A. PHYSICAL EXAMINATION: VITAL SIGNS: Blood pressure 125/69, pulse 54, temperature 98.2, oxygen saturation 98% on room air. HEENT: Head is normocephalic, atraumatic. Eyes PERRLA. Extraocular muscles intact. Conjunctivae clear. Nose patent. Mucous membrane moist. NECK: Supple. No carotid bruit. No thyromegaly. CHEST: Bilaterally symmetrical. HEART: S1 and S2 positive. LUNGS: Scattered rhonchi bilaterally. ABDOMEN: Soft. Bowel sounds present. No organomegaly. EXTREMITIES: No edema. No cyanosis. NEUROLOGIC:: Patient is awake and alert, follows simple commands. MEDICATIONS: Tylenol, Brovana, aspirin, Lipitor, Pulmicort, Lovenox, Lasix, Neurontin, Lopressor, naproxen, Zofran, and Tamiflu. LABORATORY DATA: We do not have recent labs today, but I reviewed old labs. ASSESSMENT AND PLAN: Ms. Herrera Land is a 72-year-old female came with influenza A infection, bronchitis, history of fibromyalgia, history of valvular heart disease, atrial fibrillation, the patient is on drplet precaution. D-dimer is positive. Did V/Q scan. Doppler of lower extremity done is negative. Echocardiography ordered. Dr. Harris ordered Tessalon Perles. Need sleep study. We will work on that. Patient had cardiomyopathy, atrial fibrillation, history of valvular heart disease, surgery. Gastrointestinal and deep venous thrombosis prophylaxis. Repeat labs. We will followup. Tammie Prescott MD MTDJuan Manuel
--- NOTE | 2018-04-04 07:35 | CP.PCM.PN ---
Subjective - Date & Time of Evaluation Date of Evaluation: 04/04/18 Time of Evaluation: 06:25 - Subjective Subjective: Awake, lying in bed, no distress, Reason for consultation: Cardiac evaluation of chest pain and shortness of breath.History of coronary artery disease ,atrial fibrillation, CHF, fibromyalgia, tinnitus, anxiety, mitral and tricuspid valve repair in [facility] 2017. Seen and examined by me and Dr. Avila Objective - Vital Signs/Intake and Output Vital Signs (last 24 hours): Temp Pulse Resp BP Pulse Ox 98.4 F 60 20 109/77 98 04/04/18 06:00 04/04/18 06:00 04/04/18 06:00 04/04/18 06:00 04/04/18 06:00 Intake and Output: 04/04/18 04/04/18 06:59 18:59 Intake Total 540 Output Total 2 Balance 538 - Medications Medications: Current Medications Acetaminophen (Tylenol 325mg Tab) 650 mg PO Q6H PRN PRN Reason: Fever >100.4 F Last Admin: 04/02/18 18:27 Dose: 650 mg Arformoterol Tartrate (Brovana) 15 mcg IH [id number] [facility] Last Admin: 04/03/18 20:12 Dose: 15 mcg Aspirin (Aspirin Chewable) 81 mg PO DAILY [facility] Last Admin: 04/03/18 09:25 Dose: 81 mg Atorvastatin Calcium (Lipitor) 20 mg PO DAILY [facility] Last Admin: 04/03/18 09:25 Dose: 20 mg Benzonatate (Tessalon Perles) 200 mg PO Q8H [facility] Last Admin: 04/04/18 02:35 Dose: Not Given Budesonide (Pulmicort Respules) 0.25 mg IH [id number] [facility] Last Admin: 04/03/18 20:12 Dose: 0.25 mg Enoxaparin Sodium (Lovenox) 40 mg SC DAILY [facility]; Protocol Last Admin: 04/03/18 09:24 Dose: 40 mg Furosemide (Lasix) 20 mg PO DAILY [facility] Last Admin: 04/03/18 09:23 Dose: 20 mg Gabapentin (Neurontin) 800 mg PO TID [facility] Last Admin: 04/03/18 18:28 Dose: 800 mg Metoprolol Tartrate (Lopressor) 50 mg PO BID [facility] Last Admin: 04/03/18 18:35 Dose: 50 mg Naproxen (Anaprox Ds) 550 mg PO BID [facility] Last Admin: 04/03/18 18:28 Dose: 550 mg Ondansetron HCl (Zofran Inj) 4 mg IVP Q6H PRN PRN Reason: Nausea/Vomiting Last Admin: 04/02/18 18:27 Dose: 4 mg Oseltamivir Phosphate (Tamiflu Cap) 75 mg PO BID [facility]; Protocol Stop: 04/07/18 14:20 Last Admin: 04/03/18 18:28 Dose: 75 mg - Labs Labs: 04/03/18 07:36 04/03/18 07:36 PT 13.6 SECONDS (9.4-12.5) H 04/02/18 10:18 INR 1.20 04/02/18 10:18 APTT 28.6 Seconds (26.9-38.3) 04/02/18 10:18 - Constitutional Appears: Non-toxic, No Acute Distress - Head Exam Head Exam: NORMAL INSPECTION, NORMOCEPHALIC - Eye Exam Eye Exam: Normal appearance Pupil Exam: NORMAL ACCOMODATION - ENT Exam ENT Exam: Mucous Membranes Moist, Normal Exam - Neck Exam Neck Exam: Full ROM, Normal Inspection - Respiratory Exam Respiratory Exam: Decreased Breath Sounds, Clear to Ausculation Bilateral, NORMAL BREATHING PATTERN - Cardiovascular Exam Cardiovascular Exam: Bradycardia, +S1, +S2 Additional comments: Telemetry 50's SB - GI/Abdominal Exam GI & Abdominal Exam: Soft, Normal Bowel Sounds - Extremities Exam Extremities Exam: Full ROM, Normal Capillary Refill - Neurological Exam Neurological Exam: Alert, Awake, Oriented x3 - Psychiatric Exam Psychiatric exam: Normal Affect, Normal Mood - Skin Skin Exam: Dry, Normal Color, Warm Assessment and Plan - Assessment and Plan (Free Text) Assessment: A 72 year old female who came in to the ER due to headache, coughing, chest discomfort when coughing, body malaise, shortness of breath. History of coronary artery disease ,atrial fibrillation, CHF, fibromyalgia, tinnitus, anxiety, mitral and tricuspid valve repair in [facility] 2017. She was admitted at [facility] 04/2016 for congestive heart failure. Echo was done at that time with severe mitral and tricuspid regurgitation. Cardiac cath was not done as she was already scheduled at [facility] and open heart surgery at [facility]. She was being followed up by Dr. Garcia at [facility].This admission, Chest X ray showed normal/unremarkable results, EKG showed NSR. Troponin normal x 2. Rule out acute coronary syndrome. No evidence of congestive heart failure and atrial fibrillation on normal sinus rhythm now/bradycardia. Positive for influenza. On Tamiflu. Cardiac status stable. Off telemetry.Echo done and showed LVEF 65-70%, Trivial AR, S/p MV ring/repair.Moderate MS c/w post MV repair, Trace tricuspid regurgitation RVSP 16 mmHg, no vegetation. Plan: Echo done LVEF 65-70%, Trivial AR, S/p MV ring/repair. Moderate MS c/w post MV repair, Trace tricuspid regurgitation RVSP 16 mmHg, no vegetation. Feels much better Continue Tamiflu for influenza A PRN Tessalon perles for coughing Blood pressure stable Heart rate controlled Cardiac status stable On ASA 81 mg daily, Lipitor 20 mg daily, Lovenox 40 mg daily,Lasix 20 mg daily, Lopressor 50 mg BID Tamiflu 75 mg BID Continue current medications Continue current treatment Pulmonary on consult Will follow up Plan and treatment discussed with Dr. Avila
[2018-04-04] MEDS: Arformoterol 15 mcg/2 ml Inh Sol IH SCH ×2 (07:44→20:22)
[2018-04-04] MEDS: Budesonide 0.25 mg/2 ml Inhal Susp UD IH SCH ×2 (07:45→20:22)
[2018-04-04 08:09] LABS: HEMOGLOBIN 11.9 g/dL (12.0-16.0); MEAN CELL VOLUME 85.2 fl (80.0-105.0); MEAN CORPUSCULAR HEMOGLOBIN 26.7 pg (25.0-35.0); MEAN CORPUSCULAR HGB CONC 31.4 g/dl (31.0-37.0); MEAN PLATELET VOLUME 9.7 fl (7.0-11.0); RBC 4.45 10^6/uL (3.5-6.1); RED CELL DISTRIBUTION WIDTH 14.8 % (11.5-14.5); WHITE BLOOD COUNT 3.7 10^3/uL (4.5-11.0)
[2018-04-04 08:25] LABS: CALCIUM 8.8 mg/dL (8.4-10.5)
--- NOTE | 2018-04-04 08:34 | CARD ---
APPROVED REPORT Date of service: 04/03/2018 EXAM: Two-dimensional and M-mode echocardiogram with Doppler and color Doppler. INDICATION Congenital Heart Disease 2D DIMENSIONS Left Atrium (2D)4.8 (1.6-4.0cm)IVSd0.8 (0.7-1.1cm) Aortic Root (2D)2.8 (2.0-3.7cm)LVDd5.3 (3.9-5.9cm) PWd0.9 (0.7-1.1cm)LVDs2.9 (2.5-4.0cm) FS (%) 46.3 %LVEF (%)77.3 (>50%) M-Mode DIMENSIONS Aortic Cusp Exc.1.30 (1.5-2.0cm) Mitral Valve MV E Dxgegjde852.0cm/sMV E Peak Gr.8mmHgMV A Tfnhwitq37.5cm/s MV E Mean Gr.3mmHgMV IRA222ufS/A ratio2.4 MVA (PHT)1.30cm2 TDI Lateral E' Peak V11.20cm/sMedial E' Peak V5.17cm/sE/Lateral E'13.8 E/Medial E'30.0 Pulmonary Valve PV Peak Vqtcdekg367.0cm/sPV Peak Grad.4mmHg Tricuspid Valve TR Peak [id number]/sRAP GDQGNMBJ1qvMsOV Peak Gr.13mmHg [id number] LEFT VENTRICLE The left ventricle is normal size. There is normal left ventricular wall thickness. The left ventricular function is normal. EF-65-70% There is normal LV segmental wall motion. Transmitral Doppler flow pattern is Grade II-pseudonormal filling dynamics. No left ventricle thrombus noted on this study. There is no ventricular septal defect visualized. There is no left ventricular aneurysm. There is no mass noted in the left ventricle. RIGHT VENTRICLE The right ventricle is normal size. There is normal right ventricular wall thickness. The right ventricular systolic function is normal. ATRIA The left atrium is mildly dilated. The right atrium size is normal. The interatrial septum is intact with no evidence for an atrial septal defect. AORTIC VALVE The aortic valve is calcified but opens well. The aortic valve is moderately sclerotic. Trivial AR Aortic Sclerosis vs mild . There is no aortic valvular vegetation. MITRAL VALVE Trivial MR. Geovanyderate MS c/w Post MV repair, MVA 1.3 cm2 S/p MV repair with EC Ring. TRICUSPID VALVE The tricuspid valve leaflets are thickened , but open well. There is trace tricuspid regurgitation.RVSP-16 mmof Hg. There is no tricuspid valve stenosis. There is no tricuspid valve prolapse or vegetation. PULMONIC VALVE The pulmonary valve is normal in structure. There is no pulmonic valvular regurgitation. There is no pulmonic valvular stenosis. GREAT VESSELS The aortic root is normal in size. The ascending aorta is normal in size. The pulmonary artery is normal. The IVC is normal in size and collapses >50% with inspiration. PERICARDIAL EFFUSION There is no pleural effusion. There is no pericardial effusion. <Conclusion> The left ventricle is normal size. There is normal left ventricular wall thickness. The left ventricular function is normal. EF-65-70% Trivial AR Aortic Sclerosis vs mild . S/p MV repair with EC Ring. Anel MS c/w Post MV repair, MVA 1.3 cm2 There is trace tricuspid regurgitation.RVSP-16 mmof Hg. The IVC is normal in size and collapses >50% with inspiration. There is no pericardial effusion. No vegetation or thrombus noted.
[2018-04-04] MEDS: Enoxaparin 40 mg Syringe SC SCH (09:12)
[2018-04-04] MEDS: Furosemide 40 mg/5 mL Oral Soln UD PO SCH (09:13)
[2018-04-04] MEDS: Naproxen 550 mg Tab PO SCH ×2 (09:13→17:32)
--- NOTE | 2018-04-04 09:52 | NM ---
Date of service: 04/03/2018 COMPARISON: 04/02/2018 chest x-ray TECHNIQUE: 33.0 mCi technetium 99-m DTPA aerosol. 4.0 mCI technetium 99-m MAA administered intravenously. FINDINGS: VENTILATION COMPONENT: Normal. PERFUSION COMPONENT: Normal. IMPRESSION: Lowprobability ventilation perfusion scan for pulmonary embolism.
[2018-04-04 11:12] LABS: HDL CHOLESTEROL 52 mg/dL (29-60)
[2018-04-04 11:23] LABS: LDL CHOLESTEROL 72 mg/dL (0-129)
--- NOTE | 2018-04-04 16:02 | PN ---
DATE: 04/04/2018 PULMONARY PROGRESS NOTE REFERRING PHYSICIAN: Tammie Prescott MD SUBJECTIVE: The patient is lying in bed, reports still having cough, but feels a little bit better this morning, continues on Droplet precautions for influenza A. No headache, rhinitis, chest pain, abdominal pain, nausea, vomiting, diarrhea, leg pain, or leg swelling reported. OBJECTIVE: GENERAL: No acute distress. VITAL SIGNS: Blood pressure 109/77, pulse 60, temperature 98.4, and oxygen saturation 98% on room air. HEENT: Moist mucous membranes, crowded airway. NECK: Supple, no JVD. LUNGS: Scattered rhonchi bilaterally. CARDIOVASCULAR: S1 and S2. ABDOMEN: Soft, no distention, nontender, no organomegaly. EXTREMITIES: No bilateral lower extremity edema. NEUROLOGIC: Awake, alert, verbal, follows commands. LABORATORY DATA: Reviewed. WBC 3.5, RBC 4.45, hemoglobin 11.9, hematocrit 37.9, platelets 168. Sodium 138, potassium 5.2, chloride 103, carbon dioxide 30, anion gap 11, BUN 36, creatinine 1.5, GFR 34, random glucose 94, calcium 8.8, and TSH 3.48. Blood cultures preliminary no growth after 48 hours. Echocardiogram showed ejection fraction of 65-70%, trivial AR, aortic stenosis versus mild , trace tricuspid regurgitation, RVSP 16. No pericardial effusion, no vegetation or thrombus. V/Q scan showed low probability of ventilation perfusion scan for pulmonary embolism. MEDICATIONS: Reviewed, Tylenol 650 mg every 6 hours p.r.n. fever greater than 100.4, Brovana 15 mcg every 12 hour, aspirin 81 mg p.o. daily, Lipitor 20 mg daily, Tessalon Perles 200 mg every 8 hours, Pulmicort 0.25 mg inhalation every 12 hours, Lovenox 40 mg subcu daily, Lasix 20 mg daily, Neurontin 800 mg 3 times a day, metoprolol tartrate 15 mg twice a day, naproxen 550 twice a day, Zofran 4 mg IV push every 6 hours p.r.n., and Tamiflu 75 mg twice a day. IMPRESSION AND PLAN: Influenza A infection, bronchitis, history of fibromyalgia, history of valvular heart disease, and atrial fibrillation, currently on Droplet precaution for influenza A infection. Continue inhaled bronchodilators, deep venous thrombosis prophylaxis, and gastric prophylaxis. Continue cough suppressant. The patient will need sleep study to rule out sleep apnea, cardiomyopathy, and atrial fibrillation as outpatient. This patient was seen and examined with Dr. Harris. Discussed assessment and plan as described above. This patient is seen and examined with Jarad Escudero, nurse practitioner. Discussed assessment and plan as described above. Thank you for this consult. We will follow with you. Jarad Escudero APN Will Harris MD
--- NOTE | 2018-04-05 01:42 | PN ---
DATE: 04/04/2018 SUBJECTIVE: The patient is a 72-year-old female. The patient was seen and examined at the bedside, 04/04/2018, looking comfortable, coughing, wheezing, shortness of breath is better, fever is better, and body aches are better. Still on Droplet precautions. PHYSICAL EXAMINATION: VITAL SIGNS: Blood pressure 110/70, pulse 50, temperature 98.4, and oxygen saturation 98% on room air. HEENT: Head is normocephalic and atraumatic. Eyes; PERRLA. Extraocular muscles intact. Conjunctivae clear. Nose patent. Mucous membranes moist. NECK: Supple. No carotid bruit. No JVD or thyromegaly. CHEST: Bilaterally symmetrical. HEART: S1 and S2 positive. LUNGS: Positive wheezing bilaterally. HEART: S1 and S2 positive. ABDOMEN: Soft. Bowel sounds present. No organomegaly. EXTREMITIES: No edema. No cyanosis. NEUROLOGIC: The patient is awake and alert. Moving all four extremities. No focal deficit. LABORATORY DATA: White blood cells 3.5, hemoglobin 11.9, hematocrit 37.9, and platelets 158. Sodium 138, potassium 4.2, BUN 36, creatinine 1.5, GFR 34, calcium 8.8, and TSH 3.48. ASSESSMENT AND PLAN: Mrs. Michelle Land is a 72-year-old lady came with body aches, shortness of breath, have Influenza A infection, bronchitis, history of fibromyalgia, valvular heart disease, recently got surgery in [facility], atrial fibrillation, on Droplet precaution for influenza A infection. Continue inhaled bronchodilators, deep venous thrombosis prophylaxis, and gastrointestinal prophylaxis. Getting Tamiflu. Dr. Harris ordered Tessalon Perlgabbi, Pulmicort, continue Lovenox, Lasix, Neurontin, metoprolol, Naprosyn started for body aches and she was feeling better. Repeat labs. We will followup. Tammie Prescott MD [facility]
--- NOTE | 2018-04-05 07:00 | CP.PCM.PN ---
Subjective - Date & Time of Evaluation Date of Evaluation: 04/05/18 Time of Evaluation: 06:20 - Subjective Subjective: Awake, lying in bed, no distress, Reason for consultation and follow up: Cardiac evaluation of chest pain and shortness of breath.History of coronary artery disease ,atrial fibrillation, CHF, fibromyalgia, tinnitus, anxiety, mitral and tricuspid valve repair in [facility] 2017. Seen and examined by me and Dr. Euceda Objective - Vital Signs/Intake and Output Vital Signs (last 24 hours): Temp Pulse Resp BP Pulse Ox 97.7 F 59 L 20 95/50 L 100 04/05/18 06:00 04/05/18 06:00 04/05/18 06:00 04/05/18 06:00 04/05/18 06:00 Intake and Output: 04/04/18 04/05/18 18:59 06:59 Intake Total 1020 120 Output Total 400 0 Balance 620 120 - Medications Medications: Current Medications Acetaminophen (Tylenol 325mg Tab) 650 mg PO Q6H PRN PRN Reason: Fever >100.4 F Last Admin: 04/02/18 18:27 Dose: 650 mg Arformoterol Tartrate (Brovana) 15 mcg IH [id number] [facility] Last Admin: 04/04/18 20:22 Dose: 15 mcg Aspirin (Aspirin Chewable) 81 mg PO DAILY [facility] Last Admin: 04/04/18 09:13 Dose: 81 mg Atorvastatin Calcium (Lipitor) 20 mg PO DAILY [facility] Last Admin: 04/04/18 09:13 Dose: 20 mg Benzonatate (Tessalon Perles) 200 mg PO Q8H [facility] Last Admin: 04/05/18 00:43 Dose: 200 mg Budesonide (Pulmicort Respules) 0.25 mg IH [id number] [facility] Last Admin: 04/04/18 20:22 Dose: 0.25 mg Enoxaparin Sodium (Lovenox) 40 mg SC DAILY [facility]; Protocol Last Admin: 04/04/18 09:12 Dose: 40 mg Famotidine (Pepcid) 40 mg PO HS [facility] Furosemide (Lasix) 20 mg PO DAILY [facility] Last Admin: 04/04/18 09:13 Dose: 20 mg Gabapentin (Neurontin) 800 mg PO TID [facility] Last Admin: 04/04/18 17:31 Dose: 800 mg Methylprednisolone (Solu-Medrol) 20 mg IVP Q12 [facility] Metoprolol Tartrate (Lopressor) 50 mg PO BID [facility] Last Admin: 04/04/18 17:31 Dose: 50 mg Ondansetron HCl (Zofran Inj) 4 mg IVP Q6H PRN PRN Reason: Nausea/Vomiting Last Admin: 04/02/18 18:27 Dose: 4 mg Oseltamivir Phosphate (Tamiflu Cap) 75 mg PO BID [facility]; Protocol Stop: 04/07/18 14:20 Last Admin: 04/04/18 17:32 Dose: 75 mg - Labs Labs: 04/04/18 07:30 04/04/18 07:30 PT 13.6 SECONDS (9.4-12.5) H 04/02/18 10:18 INR 1.20 04/02/18 10:18 APTT 28.6 Seconds (26.9-38.3) 04/02/18 10:18 - Constitutional Appears: Non-toxic, No Acute Distress - Head Exam Head Exam: NORMAL INSPECTION, NORMOCEPHALIC - Eye Exam Eye Exam: Normal appearance Pupil Exam: NORMAL ACCOMODATION - ENT Exam ENT Exam: Mucous Membranes Moist - Respiratory Exam Respiratory Exam: Decreased Breath Sounds, Rhonchi, NORMAL BREATHING PATTERN - Cardiovascular Exam Cardiovascular Exam: Bradycardia, +S1, +S2 - GI/Abdominal Exam GI & Abdominal Exam: Soft, Normal Bowel Sounds - Extremities Exam Extremities Exam: Full ROM, Normal Capillary Refill - Neurological Exam Neurological Exam: Alert, Awake, Oriented x3 - Psychiatric Exam Psychiatric exam: Normal Affect, Normal Mood - Skin Skin Exam: Dry, Normal Color, Warm Assessment and Plan - Assessment and Plan (Free Text) Assessment: A 72 year old female who came in to the ER due to headache, coughing, chest discomfort when coughing, body malaise, shortness of breath. History of coronary artery disease ,atrial fibrillation, CHF, fibromyalgia, tinnitus, anxiety, mitral and tricuspid valve repair in [facility] 2017. She was admitted at [facility] 04/2016 for congestive heart failure. Echo was done at that time with severe mitral and tricuspid regurgitation. Cardiac cath was not done as she was already scheduled at [facility] and open heart surgery at [facility]. She was being followed up by Dr. Garcia at [facility].This admission, Chest X ray showed normal/unremarkable results, EKG showed NSR. Troponin normal x 2. Rule out acute coronary syndrome. No evidence of congestive heart failure and atrial fibrillation on normal sinus rhythm now/bradycardia. . Echo done and showed LVEF 65-70%, Trivial AR, S/p MV ring/repair.Moderate MS c/w post MV repair, Trace tricuspid regurgitation RVSP 16 mmHg, no vegetatio n. Positive for influenza. On Tamiflu. On droplet precaution. Cardiac status stable. Plan: Feels much better but still coughing Continue Tamiflu for influenza A On droplet precaution PRN Tessalon perles for coughing Blood pressure stable Heart rate controlled Cardiac status stable On ASA 81 mg daily, Lipitor 20 mg daily, Lovenox 40 mg daily,Lasix 20 mg daily, Lopressor 50 mg BID Tamiflu 75 mg BID Continue current medications Continue current treatment Pulmonary on consult Will follow up Plan and treatment discussed with Dr. Euceda
[2018-04-05] MEDS: Arformoterol 15 mcg/2 ml Inh Sol IH SCH ×2 (07:30→20:05)
[2018-04-05] MEDS: Budesonide 0.25 mg/2 ml Inhal Susp UD IH SCH ×2 (07:30→20:05)
[2018-04-05] MEDS: Furosemide 40 mg/5 mL Oral Soln UD PO SCH (11:13)
[2018-04-05] MEDS: MethylPREDNISolone 40 mg Vial IVP SCH ×2 (11:14→21:45)
[2018-04-05] MEDS: Enoxaparin 40 mg Syringe SC SCH (11:15)
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
--- NOTE | 2018-04-05 18:49 | US ---
HISTORY: Leg pain and swelling. Evaluate for DVT PHYSICIAN(S): Tavares Hewitt MD. TECHNIQUE: Duplex sonography and color-flow Doppler with graded compression were used to evaluate the deep venous systems of both lower extremities. FINDINGS: There is isolated right tibial DVT in the peroneal veins, age indeterminate. The right popliteal vein, right femoral vein, right common femoral vein and proximal right profunda femoral vein are patent and compressible. There is no sonographic evidence for deep venous thrombosis the visualized segments of left lower extremity IMPRESSION: Isolated right tibial DVT.
[2018-04-06] MEDS: Arformoterol 15 mcg/2 ml Inh Sol IH SCH ×2 (07:22→21:40)
[2018-04-06] MEDS: Budesonide 0.25 mg/2 ml Inhal Susp UD IH SCH ×2 (07:23→21:40)
[2018-04-06 07:30] LABS: CALCIUM 8.9 mg/dL (8.4-10.5)
--- NOTE | 2018-04-06 08:07 | CP.PCM.PN ---
Subjective - Date & Time of Evaluation Date of Evaluation: 04/06/18 Time of Evaluation: 06:40 - Subjective Subjective: Awake, lying in bed, no distress,feels better Reason for consultation and follow up: Cardiac evaluation of chest pain and shortness of breath.History of coronary artery disease ,atrial fibrillation, CHF, fibromyalgia, tinnitus, anxiety, mitral and tricuspid valve repair in [facility] 2017. Seen and examined by me and Dr. Euceda Objective - Vital Signs/Intake and Output Vital Signs (last 24 hours): Temp Pulse Resp BP Pulse Ox 98.2 F 52 L 20 134/79 99 04/06/18 06:00 04/06/18 06:00 04/06/18 06:00 04/06/18 06:00 04/06/18 06:00 Intake and Output: 04/06/18 04/06/18 06:59 18:59 Intake Total 120 360 Output Total 0 Balance 120 360 - Medications Medications: Current Medications Acetaminophen (Tylenol 325mg Tab) 650 mg PO Q6H PRN PRN Reason: Fever >100.4 F Last Admin: 04/05/18 18:28 Dose: 650 mg Arformoterol Tartrate (Brovana) 15 mcg IH [id number] [facility] Last Admin: 04/06/18 07:22 Dose: 15 mcg Aspirin (Aspirin Chewable) 81 mg PO DAILY [facility] Last Admin: 04/05/18 11:13 Dose: 81 mg Atorvastatin Calcium (Lipitor) 20 mg PO DAILY [facility] Last Admin: 04/05/18 11:19 Dose: 20 mg Benzonatate (Tessalon Perles) 200 mg PO Q8H [facility] Last Admin: 04/06/18 03:30 Dose: 200 mg Budesonide (Pulmicort Respules) 0.25 mg IH [id number] [facility] Last Admin: 04/06/18 07:23 Dose: 0.25 mg Enoxaparin Sodium (Lovenox) 40 mg SC DAILY [facility]; Protocol Last Admin: 04/05/18 11:15 Dose: 40 mg Famotidine (Pepcid) 40 mg PO HS [facility] Last Admin: 04/05/18 21:44 Dose: 40 mg Furosemide (Lasix) 20 mg PO DAILY [facility] Last Admin: 04/05/18 11:13 Dose: 20 mg Gabapentin (Neurontin) 800 mg PO TID [facility] Last Admin: 04/05/18 18:15 Dose: 800 mg Methylprednisolone (Solu-Medrol) 20 mg IVP Q12 [facility] Last Admin: 04/05/18 21:45 Dose: 20 mg Metoprolol Tartrate (Lopressor) 50 mg PO BID [facility] Last Admin: 04/05/18 18:15 Dose: 50 mg Ondansetron HCl (Zofran Inj) 4 mg IVP Q6H PRN PRN Reason: Nausea/Vomiting Last Admin: 04/02/18 18:27 Dose: 4 mg Oseltamivir Phosphate (Tamiflu Cap) 30 mg PO BID [facility]; Protocol Stop: 04/07/18 14:20 Last Admin: 04/05/18 18:16 Dose: 30 mg - Labs Labs: 04/04/18 07:30 04/06/18 07:05 PT 13.6 SECONDS (9.4-12.5) H 04/02/18 10:18 INR 1.20 04/02/18 10:18 APTT 28.6 Seconds (26.9-38.3) 04/02/18 10:18 - Constitutional Appears: Non-toxic, No Acute Distress - Head Exam Head Exam: NORMAL INSPECTION, NORMOCEPHALIC - Eye Exam Eye Exam: Normal appearance Pupil Exam: NORMAL ACCOMODATION - ENT Exam ENT Exam: Mucous Membranes Moist, Normal Exam - Respiratory Exam Respiratory Exam: Decreased Breath Sounds, Clear to Ausculation Bilateral, NORMAL BREATHING PATTERN - Cardiovascular Exam Cardiovascular Exam: +S1, +S2 - GI/Abdominal Exam GI & Abdominal Exam: Soft, Normal Bowel Sounds - Extremities Exam Extremities Exam: Full ROM, Normal Capillary Refill - Neurological Exam Neurological Exam: Alert, Awake, Oriented x3 - Psychiatric Exam Psychiatric exam: Normal Affect, Normal Mood - Skin Skin Exam: Dry, Normal Color, Warm Assessment and Plan - Assessment and Plan (Free Text) Assessment: A 72 year old female who came in to the ER due to headache, coughing, chest discomfort when coughing, body malaise, shortness of breath. History of coronary artery disease ,atrial fibrillation, CHF, fibromyalgia, tinnitus, anxiety, mitral and tricuspid valve repair in [facility] 2017. She was admitted at [facility] 04/2016 for congestive heart failure. Echo was done at that time with severe mitral and tricuspid regurgitation. Cardiac cath was not done as she was already scheduled at [facility] and open heart surgery at [facility]. She was being followed up by Dr. Garcia at [facility].This admission, Chest X ray showed normal/unremarkable results, EKG showed NSR. Troponin normal x 2. Rule out acute coronary syndrome. No evidence of congestive heart failure and atrial fibrillation on normal sinus rhythm now/bradycardia. . Echo done and showed LVEF 65-70%, Trivial AR, S/p MV ring/repair.Moderate MS c/w post MV repair, Trace tricuspid regurgitation RVSP 16 mmHg, no vegetation. Positive for influenza. On Tamiflu. On droplet precaution. Cardiac status stable. Discontinued telemetry. Plan: Cardiac status stable Feels much better Continue Tamiflu for influenza A On droplet precaution PRN Tessalon perles for coughing Blood pressure stable Heart rate controlled On ASA 81 mg daily, Lipitor 20 mg daily, Lovenox 40 mg daily,Lasix 20 mg daily, Lopressor 50 mg BID Tamiflu 30 mg BID, Solumedrol 20 mg BID, Continue current medications Continue current treatment Pulmonary on consult Discharge planning Will follow up Plan and treatment discussed with Dr. Euceda
[2018-04-06] MEDS: Enoxaparin 40 mg Syringe SC SCH (09:43)
[2018-04-06] MEDS: MethylPREDNISolone 40 mg Vial IVP SCH ×2 (09:43→21:15)
[2018-04-06] MEDS: Furosemide 40 mg/5 mL Oral Soln UD PO SCH (09:44)
--- NOTE | 2018-04-06 11:22 | PN ---
DATE: 04/06/2018 PULMONARY PROGRESS NOTE. REFERRING PHYSICIAN: Tammie Prescott MD SUBJECTIVE: The patient is sitting up at bedside, reports feeling much better this morning, still has cough but has some improvement. No headaches, rhinitis, chest pain, abdominal pain, nausea, vomiting, leg pain or leg swelling reported. OBJECTIVE: VITAL SIGNS: Blood pressure 134/79, pulse 52, temperature 98.2, and oxygen saturation 99% on room air. GENERAL: No acute distress. HEENT: Moist mucous membranes, crowded airway. NECK: Supple, no JVD. LUNGS: Rhonchi bilaterally. CARDIOVASCULAR: S1 and S2 audible. ABDOMEN: Soft and nontender. No distention, no organomegaly. EXTREMITIES: No bilateral lower extremity edema. NEUROLOGIC: Awake, alert, and verbal. Follows commands. MEDICATIONS: Reviewed. Tylenol 650 mg every 6 hours p.r.n. fever greater than 100.4, Brovana 15 mcg every 12 hours, aspirin 81 mg daily, Lipitor 20 mg daily, Tessalon Perles 200 mg every 8 hours, Pulmicort 0.25 mg inhalation every 12 hours, Lovenox 40 mg subcu daily, Pepcid 40 mg at bedtime, Lasix 20 mg daily, Neurontin 800 mg 3 times a day, Solu-Medrol 20 mg every 12 hours, metoprolol tartrate 50 mg twice a day, Zofran 4 mg every 6 hours p.r.n., and Tamiflu 30 mg twice a day. LABORATORY DATA: Reviewed. WBC 3.7, RBC 4.45, hemoglobin 11.9, hematocrit 37.9, platelets 168. Sodium 138, potassium 4.9, chloride 103, carbon dioxide 27, anion gap 13, BUN 37, creatinine 1.1, GFR 49, random glucose 112, calcium 8.9. ProBNP is 775. Blood cultures preliminary no growth after 3 days. Extremity ultrasound shows isolated right tibial DVT. IMPRESSION AND PLAN: Influenza A infection, bronchitis triggered by environmental factors, history of fibromyalgia, valvular heart disease, atrial fibrillation and deep vein thrombosis right tibial. The patient is on Droplet precautions for influenza A infection. Continue inhaled bronchodilators, gastric prophylaxis. The patient will need to repeat venous Doppler in 1 week to ensure stability of deep venous thrombosis to right tibial. Continue on Lovenox 40 mg at this time. ProBNP trending down. Continue diuretics. The patient will need full pulmonary function tests as outpatient to evaluate chronic lung disease. We will need sleep study to rule out sleep apnea as the cause for cardiomyopathy and atrial fibrillation as outpatient. This patient was seen and examined with Dr. Harris. Discussed assessment and plan as described above. This patient was seen and examined with Jarad Escudero, nurse practitioner. Discussed assessment and plan as described above. Thank you for this consult. We will follow with you. Jarad Escudero APN Will Harris MD
--- NOTE | 2018-04-06 13:54 | PN ---
DATE: 04/05/2018 SUBJECTIVE: The patient was seen and examined at bedside on 04/05/2018. Daughter was sitting on the bedside, looking comfortable. No fever. No chills. Complaining about cough but better. Shortness of breath is better. No headache. No dizziness. No chest pain. No swelling of the legs. PHYSICAL EXAMINATION: VITAL SIGNS: Blood pressure 120/60, pulse 57, temperature 97.5, oxygen saturation is 100%. HEENT: Head: Normocephalic, atraumatic. Eyes: PERRLA. Extraocular muscles intact. Conjunctivae clear. Nose patent. Mucous membranes moist. NECK: Supple. No carotid bruit. No thyromegaly. CHEST: Bilaterally symmetrical. HEART: S1 and S2 positive. LUNGS: Clear to auscultation. ABDOMEN: Soft. Bowel sounds present. No organomegaly. EXTREMITIES: No edema. No cyanosis. NEUROLOGIC: The patient is awake, alert. Moving all four extremities. No focal deficits. MEDICATIONS: Tylenol, Brovana, aspirin, Lipitor, Tessalon Perles, Pulmicort, Lovenox, Neurontin, Solu-Medrol, metoprolol, Zofran, Tamiflu. LABORATORY DATA: White blood cell is 3.7, hemoglobin 11.9, hematocrit 37.9, and platelets 158. ASSESSMENT AND PLAN: Ms. Herrera Land is a 72-year-old female, has influenza infection, bronchitis triggered by environmental factors, history of fibromyalgia, valvular heart disease, atrial fibrillation, peripheral neuropathy. The patient is still in blood precautions. For influenza A, getting Tamiflu. The patient was wheezing, now getting better with Solu-Medrol and breathing treatment. Processing Clerk is on the case. Continue BiPAP, inhaled bronchodilators. Repeat labs. We will follow up. Discussion done with the patient's family. All questions answered. Tammie Prescott MD Job # [id number] MTDD
--- NOTE | 2018-04-07 00:10 | PN ---
DATE: 04/06/2018 SUBJECTIVE: The patient is a 72-year-old female. The patient was seen and examined at the bedside on 04/06/2018. Still coughing and wheezing but they were better. No fever. No chills. No hematuria. No hematochezia. No rhinitis. No headache. No dizziness. PHYSICAL EXAMINATION: VITAL SIGNS: Blood pressure 130/70, pulse 52, temperature 98.2, and oxygenation saturation 97% on room air. HEENT: Head: Normocephalic and atraumatic. Eyes: PERRLA. Extraocular muscles are intact. Conjunctivae clear. Nose patent. Mucous membranes moist. NECK: Supple. No carotid bruit, JVD, or thyromegaly. CHEST: Bilaterally symmetrical. HEART: S1 and S2 positive. LUNGS: Rhonchi bilaterally. ABDOMEN: Soft. Nontender. Nondistended. EXTREMITIES: Bilaterally no edema. No cyanosis. NEUROLOGIC: The patient is awake and alert. Follows simple commands. MEDICATIONS: Tylenol, Brovana, aspirin, Lipitor, Tessalon Perles, Pulmicort, Lovenox, Pepcid, Lasix, Neurontin, Solu-Medrol, metoprolol, Zofran, Tamiflu. LABORATORY DATA: White blood cells 3.7, hemoglobin 11.9, hematocrit 37.9. Sodium 138, potassium 4.9, BUN 37, creatinine 1.1. Blood culture preliminary, no growth after 3 days. ASSESSMENT AND PLAN: Mrs. Michelle Land is a 72-year-old lady, came with influenza infection, bronchitis triggered by the environmental factors, history of fibromyalgia, valvular heart disease, peripheral neuropathy, getting Neurontin, atrial fibrillation, history of deep vein thrombosis of the right lower extremity. The patient is on Droplet precautions for influenza A infection. Continue inhaled bronchodilators. Gastrointestinal and deep vein thrombosis prophylaxis. The patient will need to repeat venous Doppler in one week to ensure stability of deep vein thrombosis to the right tibial. Continue Lovenox. Need pulmonary function test as outpatient, asthma, chronic obstructive pulmonary disease, sleep apnea syndrome, rule out cardiomyopathy, and atrial fibrillation. Discussed done with the patient and the patient's family and the patient's nursing staff. Reviewed Dr. Harris's notes. Reviewed Dr. Euceda's addendum. Repeat labs. We will follow up. Tammie Prescott MD BEE
[2018-04-07] MEDS: Arformoterol 15 mcg/2 ml Inh Sol IH SCH ×2 (07:40→19:34)
[2018-04-07] MEDS: Budesonide 0.25 mg/2 ml Inhal Susp UD IH SCH ×2 (07:41→19:34)
[2018-04-07] MEDS: MethylPREDNISolone 40 mg Vial IVP SCH ×2 (10:01→21:16)
[2018-04-07] MEDS: Furosemide 40 mg/5 mL Oral Soln UD PO SCH (10:20)
--- NOTE | 2018-04-07 11:36 | PN ---
DATE: 04/07/2018 PULMONARY PROGRESS NOTE REFERRING PHYSICIAN: Tammie Prescott MD SUBJECTIVE: The patient is sitting up in bed. No acute distress. No overnight events reported. The patient reports feeling well today, still has cough but it has gotten better. Denies shortness of breath. No headache, rhinitis, chest pain, abdominal pain, nausea, vomiting, diarrhea, leg pain or leg swelling reported. OBJECTIVE: GENERAL: No acute distress. VITAL SIGNS: Blood pressure 137/73, pulse 60, temperature 98.6, and oxygen saturation 95% on room air. HEENT: Moist mucous membranes. Crowded airway. NECK: Supple. No JVD. LUNGS: Rhonchi bilaterally. CARDIOVASCULAR: S1 and S2. ABDOMEN: Soft and nontender. No distention. No organomegaly. EXTREMITIES: No bilateral lower extremity edema. NEUROLOGIC: Awake, alert, and verbal. Follows commands. MEDICATIONS: Reviewed. Tylenol 650 mg every 6 hours p.r.n. fever greater than 100.4, Eliquis 2.5 mg twice a day, Brovana 15 mcg every 12 hours, aspirin 81 mg daily, Lipitor 20 mg daily, Tessalon Perles 200 mg every 8 hours, Pulmicort 0.25 mg inhalation every 12 hours, Pepcid 20 mg at bedtime, Lasix 20 mg daily, Neurontin 800 mg 3 times a day, Solu-Medrol 20 mg every 12 hours, Lopressor 15 mg twice a day and Tamiflu 30 mg twice a day. LABORATORY DATA: Reviewed. Blood cultures final no growth after 5 days. IMPRESSION AND PLAN: Influenza A infection, bronchitis triggered by environmental factors, history of fibromyalgia, valvular heart disease, atrial fibrillation and deep vein thrombosis, right tibial. The patient is on Droplet precautions for influenza A infection. Continue inhaled bronchodilators, gastric prophylaxis. The patient currently on anticoagulation therapy, monitor for any bleeding, continue diuretics. If the patient is to be discharged, we recommend Medrol Dosepak, continue Eliquis 2.5 mg twice a day. The patient to followup with Dr. Prescott in 2 to 3 days. The patient will need sleep study to rule out sleep apnea as cause of cardiomyopathy and atrial fibrillation as outpatient. The patient will also need full pulmonary function test as outpatient to evaluate chronic lung disease. She should also have a followup venous Doppler to followup on deep venous thrombosis on right tibial. This patient was seen and examined with Dr. Harris. Discussed assessment and plan as described above. This patient was seen and examined with Jarad Escudero, nurse practitioner. Discussed assessment and plan as described above. Thank you for this consult and we will follow with you. Jarad Escudero APN Will Harris MD)
--- NOTE | 2018-04-07 14:36 | PN ---
DATE: 04/07/2018 REASON FOR CONSULTATION: Followup, cardiac evaluation, history of MVR, normal coronaries, admitted with the flu. SUBJECTIVE: The patient denied any chest pain, shortness of breath, any palpitation on isolation. PHYSICAL EXAMINATION: VITAL SIGNS: Temperature afebrile. Heart rate 80, blood pressure 137/73. HEENT: PERRLA. Extraocular muscles are intact. NECK: Supple. No carotid bruit or thyromegaly. CHEST: Clear to auscultation. HEART: S1 and S2, regular. ABDOMEN: Soft. EXTREMITIES: Clubbing and cyanosis negative. LABORATORY DATA: Blood workup as follows: WBC 3.7, hemoglobin 11.9, hematocrit 37.9, and platelet count 168. Chemistry showed sodium 130, potassium 4.9, chloride 103, carbon dioxide 27, anion gap of 13, BUN 37, and creatinine 1.1. IMPRESSION: A 72-year-old female admitted with the flu, history of tricuspid regurgitation, status post mitral valve repair and tricuspid repair at [facility] in 2017, admitted with flu symptoms. Had a cardiac catheterization before mitral valve repair, normal coronary. So far, no evidence of acute myocardial infarction; admitted with flu, on Tamiflu and isolation, improving. History of hypertension, hyperlipidemia. RECOMMENDATION: Continue anti-flu medications as per ID and Pulmonary. Continue metoprolol. Continue gentle Lasix. We will follow as outpatient. We will discontinue telemetry. CVS status is stable. No evidence of acute [place]. Will Euceda MD
[2018-04-08 06:03] VITALS: O2SAT 96
--- NOTE | 2018-04-08 07:37 | CP.PCM.PN ---
Subjective - Date & Time of Evaluation Date of Evaluation: 04/08/18 Time of Evaluation: 06:25 - Subjective Subjective: Awake, lying in bed, no distress,wanted to go home Reason for consultation and follow up: Cardiac evaluation of chest pain and shortness of breath.History of coronary artery disease ,atrial fibrillation, CHF, fibromyalgia, tinnitus, anxiety, mitral and tricuspid valve repair in [facility] 2017. Seen and examined by me and Dr. Euceda Objective - Vital Signs/Intake and Output Vital Signs (last 24 hours): Temp Pulse Resp BP Pulse Ox 97.8 F 62 20 135/63 96 04/08/18 06:00 04/08/18 06:00 04/08/18 06:00 04/08/18 06:00 04/08/18 06:00 Intake and Output: 04/08/18 04/08/18 06:59 18:59 Intake Total 240 Balance 240 - Medications Medications: Current Medications Acetaminophen (Tylenol 325mg Tab) 650 mg PO Q6H PRN PRN Reason: Fever >100.4 F Last Admin: 04/05/18 18:28 Dose: 650 mg Apixaban (Eliquis) 2.5 mg PO BID [facility]; Protocol Last Admin: 04/07/18 19:25 Dose: 2.5 mg Arformoterol Tartrate (Brovana) 15 mcg IH [id number] [facility] Last Admin: 04/07/18 19:34 Dose: 15 mcg Aspirin (Aspirin Chewable) 81 mg PO DAILY [facility] Last Admin: 04/07/18 10:20 Dose: 81 mg Atorvastatin Calcium (Lipitor) 20 mg PO DAILY [facility] Last Admin: 04/07/18 10:02 Dose: 20 mg Benzonatate (Tessalon Perles) 200 mg PO Q8H [facility] Last Admin: 04/08/18 02:30 Dose: 200 mg Budesonide (Pulmicort Respules) 0.25 mg IH [id number] [facility] Last Admin: 04/07/18 19:34 Dose: 0.25 mg Famotidine (Pepcid) 20 mg PO HS [facility] Last Admin: 04/07/18 21:16 Dose: 20 mg Furosemide (Lasix) 20 mg PO DAILY [facility] Last Admin: 04/07/18 10:20 Dose: 20 mg Gabapentin (Neurontin) 800 mg PO TID [facility] Last Admin: 04/07/18 19:22 Dose: 800 mg Methylprednisolone (Solu-Medrol) 20 mg IVP Q12 [facility] Last Admin: 04/07/18 21:16 Dose: 20 mg Metoprolol Tartrate (Lopressor) 50 mg PO BID [facility] Last Admin: 04/07/18 19:23 Dose: Not Given - Labs Labs: 04/04/18 07:30 04/06/18 07:05 PT 13.6 SECONDS (9.4-12.5) H 04/02/18 10:18 INR 1.20 04/02/18 10:18 APTT 28.6 Seconds (26.9-38.3) 04/02/18 10:18 - Constitutional Appears: Non-toxic, No Acute Distress - Head Exam Head Exam: NORMAL INSPECTION, NORMOCEPHALIC - Eye Exam Eye Exam: Normal appearance Pupil Exam: NORMAL ACCOMODATION - ENT Exam ENT Exam: Mucous Membranes Moist, Normal Exam - Respiratory Exam Respiratory Exam: Decreased Breath Sounds, Rhonchi, NORMAL BREATHING PATTERN - Cardiovascular Exam Cardiovascular Exam: +S1, +S2 - GI/Abdominal Exam GI & Abdominal Exam: Soft, Normal Bowel Sounds - Extremities Exam Extremities Exam: Full ROM, Normal Capillary Refill - Neurological Exam Neurological Exam: Alert, Awake, Oriented x3 - Psychiatric Exam Psychiatric exam: Normal Affect, Normal Mood - Skin Skin Exam: Dry, Normal Color, Warm Assessment and Plan - Assessment and Plan (Free Text) Assessment: A 72 year old female who came in to the ER due to headache, coughing, chest discomfort when coughing, body malaise, shortness of breath. History of coronary artery disease ,atrial fibrillation, CHF, fibromyalgia, tinnitus, anxiety, mitral and tricuspid valve repair in [facility] 2016. She was admitted at [facility] 04/2016 for congestive heart failure. Echo was done at that time with severe mitral and tricuspid regurgitation. Cardiac cath was not done as she was already scheduled at [facility] and open heart surgery at [facility]. She was being followed up by Dr. Garcia at [facility].This admission, Chest X ray showed normal/unremarkable results, EKG showed NSR. T roponin normal x 2. Rule out acute coronary syndrome. No evidence of congestive heart failure and atrial fibrillation on normal sinus rhythm now/bradycardia. . Echo done and showed LVEF 65-70%, Trivial AR, S/p MV ring/repair.Moderate MS c/w post MV repair, Trace tricuspid regurgitation RVSP 16 mmHg, no vegetation. Positive isolated right tibial DVT, On Eliquis. Positive for influenza. On Tamiflu. On droplet precaution. Cardiac status stable. Pulmonary on consult. Plan: On droplet precaution Cardiac status stable Feels much better Completed Tamiflu Blood pressure stable Heart rate controlled On ASA 81 mg daily, Lipitor 20 mg daily,Eliquis 2.5 mg BID Lasix 20 mg daily, Lopressor 50 mg BID Solumedrol 20 mg BID, Continue current medications Continue current treatment Pulmonary on consult Discharge planning Repeat US of right leg to follow up DVT as out patient Will follow up Plan and treatment discussed with Dr. Euceda
[2018-04-08] MEDS: Arformoterol 15 mcg/2 ml Inh Sol IH SCH (08:29)
[2018-04-08] MEDS: Budesonide 0.25 mg/2 ml Inhal Susp UD IH SCH (08:30)
[2018-04-08] MEDS: Furosemide 40 mg/5 mL Oral Soln UD PO SCH (10:56)
[2018-04-08 11:00] VITALS: BP 149/80
[2018-04-08] MEDS ORDERED: MethylPREDNISolone 40 mg Vial IVP ONE (11:00)
--- NOTE | 2018-04-08 11:43 | PN ---
DATE: 04/08/2018 PULMONARY PROGRESS NOTE REFERRING PHYSICIAN: Tammie Prescott MD SUBJECTIVE: The patient is sitting up in bed, family at bedside. No acute distress. No overnight events reported, still having cough. No shortness of breath. No headache, rhinitis, chest pain, abdominal pain, nausea, vomiting, diarrhea, leg pain or leg swelling reported. The patient does report that cough is better, however. OBJECTIVE: GENERAL: No acute distress. VITAL SIGNS: Blood pressure 135/63, pulse 62, temperature 97.8, and oxygen saturation 96% on room air. HEENT: Moist mucous membranes. Crowded airway. NECK: Supple. No JVD. LUNGS: Rhonchi bilaterally. CARDIOVASCULAR: S1 and S2. ABDOMEN: Soft and nontender. No distention. No organomegaly. EXTREMITIES: No bilateral lower extremity edema. NEUROLOGIC: Awake, alert, and verbal. Follows commands. MEDICATIONS: Reviewed. Tylenol 650 mg every 6 hours p.r.n. fever greater than 100.4, Eliquis 2.5 mg twice a day, Brovana 15 mcg every 12 hours, aspirin 81 mg daily, Lipitor 20 mg daily, Tessalon Perles 200 mg every 8 hours, Pulmicort 0.25 mg every 12 hours, Pepcid 20 mg at bedtime, Lasix 20 mg daily, Neurontin 800 mg 3 times a day, Solu-Medrol 20 mg every 12 hours and Lopressor 50 mg twice a day. LABORATORY DATA: Reviewed. No new labs since yesterday. IMPRESSION AND PLAN: Influenza A infection, bronchitis triggered by environmental factors, history of fibromyalgia, valvular heart disease, atrial fibrillation, deep venous thrombosis, right tibial deep venous thrombosis. The patient completed Tamiflu course, no longer on Droplet precautions. Continue gastric prophylaxis. The patient currently on anticoagulation therapy, monitor for any signs and symptoms of bleeding, if any signs and symptoms of bleeding does occur, will need to stop anticoagulation. Will discontinue Solu-Medrol and start the patient on prednisone 20 mg daily. This patient will need sleep study to rule out sleep apnea as cause of cardiomyopathy and atrial fibrillation as outpatient. The patient will also need full pulmonary function test as outpatient to evaluate chronic lung disease. She should also have a followup venous Doppler to followup on deep venous thrombosis on right tibial. From pulmonary point of view, the patient is stable at this time for discharge, just needs to ensure that she does followup as outpatient. This patient was seen and examined with Dr. Harris. Discussed assessment and plan as described above. This patient was seen and examined with Jarad Escudero, nurse practitioner. Discussed assessment and plan as described above. Thank you for this consult and we will follow with you. Jarad Escudero APN Will Harris MD
[2018-04-08 12:10] VITALS: PULSE 69; RESP 18; TEMP 98.3
[2018-04-08] MEDS: MethylPREDNISolone 40 mg Vial IVP SCH (12:30)
--- NOTE | 2018-04-09 15:31 | PN ---
DATE: 04/07/2018 SUBJECTIVE: The patient is 72-year-old. The patient was seen and examined at the bedside on 04/07/2018 and looking comfortable. No fever. No chills. No hematuria. No hematochezia. No headache. No dizziness. No chest pain. No palpitation. PHYSICAL EXAMINATION: VITAL SIGNS: The patient is afebrile, heart rate 80, blood pressure 130/70, and respiratory rate 18. HEENT: Head; normocephalic and atraumatic. Eyes; PERRLA. Extraocular muscles are intact. Conjunctivae clear. Nose patent. Mucous membranes moist. NECK: Supple. No carotid bruit. No JVD or thyromegaly. CHEST: Bilaterally symmetrical. HEART: S1 and S2 positive. LUNGS: Clear to auscultation. ABDOMEN: Soft. Bowel sounds present. No organomegaly. EXTREMITIES: No edema. No cyanosis. NEUROLOGIC: The patient is awake and alert. Follows simple commands. LABORATORY DATA: White blood cells 3.7, hemoglobin 11.9, hematocrit 37.9, and platelets 158. Sodium 130, potassium 4.9, BUN 37, creatinine 1.1 and chloride 103. MEDICATIONS: Reviewed by me. ASSESSMENT AND PLAN: Ms. Michelle Land is 72-year-old female, with a history of tricuspid regurgitation, status post mitral valve replacement, tricuspid repair at [facility] in 2017, admitted for flu symptoms. Had cardiac catheterization done before mitral valve repair, normal coronary arteries. No evidence of acute myocardial infarction. Got Tamiflu, droplet isolation, improving. History of hypertension and hypercholesterolemia. Continue Tamiflu. Continue metoprolol, Lasix. Bilingual Patient Support Caseworker just discontinued the telemetry. cardiac status is stable. Bilingual Patient Support Caseworker and Outboard System Operator is on the case. The patient had bronchitis, triggered by environmental factors, history of fibromyalgia, and atrial fibrillation with the deep vein thrombosis, right tibial. The patient is on anticoagulation therapy, Eliquis, getting steroids, gastrointestinal and deep venous thrombosis prophylaxis. Repeat labs. We will follow up. Tammie Prescott MD MTDJuan Manuel
== END 2018-04-08 14:48 | disposition home or self-care (01) | DRG 194 ==
LOC: ED 09:44 → ERH 11:11 → 2RSO 04-03 01:13 → OBSVTOIN 04-03 18:08
PROVIDERS: ADMIT Internal Medicine; ATTEND Internal Medicine
DX: J10.1 Influenza due to other identified influenza virus with other respiratory manifestations (principal); I42.9 Cardiomyopathy, unspecified; I82.541 Chronic embolism and thrombosis of right tibial vein; J40 Bronchitis, not specified as acute or chronic; M79.7 Fibromyalgia; I11.0 Hypertensive heart disease with heart failure; I25.10 Atherosclerotic heart disease of native coronary artery without angina pectoris; Z95.2 Presence of prosthetic heart valve; I48.91 Unspecified atrial fibrillation; H92.01 Otalgia, right ear; I08.1 Rheumatic disorders of both mitral and tricuspid valves; E78.5 Hyperlipidemia, unspecified; G47.30 Sleep apnea, unspecified; I50.9 Heart failure, unspecified; J31.0 Chronic rhinitis; J44.9 Chronic obstructive pulmonary disease, unspecified; K21.9 Gastro-esophageal reflux disease without esophagitis; Z79.82 Long term (current) use of aspirin; Z90.710 Acquired absence of both cervix and uterus